=== PATIENT | female | born 1990 ===

== ENCOUNTER 2017-03-28 10:37 | Emergency (ER) | payer OTHER ==
[2017-03-28 10:37] VITALS: BMI 38.7
--- NOTE | 2017-03-28 11:16 | ED PDOC ---
Arrival/HPI - General Historian: Patient - History of Present Illness Time/Duration: Prior to Arrival Symptom Onset: Sudden Symptom Course: Unchanged Quality: Aching Severity Level: 4 Activities at Onset: Light Context: Walking, Street <Chey Mcfadden - Last Filed: 03/28/17 12:31> <Jb Jackson - Last Filed: 03/28/17 15:04> - General Chief Complaint: Seizure Time Seen by Provider: 03/28/17 10:57 - History of Present Illness Narrative History of Present Illness (Text): 03/28/17 11:13 This is a 26Y F with PMH of seizures who came to ED for seizure. She was walking her children to school and next thing she knew she was in the ambulance. She reports LOC and that she did hit her head and has a headache right now. She denies tongue biting or incontinence. Her last seizure was a couple months ago and she was admitted at [facility] in January. She takes Keppra for her seizures and sees Dr. Nagy as outpatient. She denies CP, SOB, n/v/d, numbness/tingling, fever or chills. She just feels weak and has a headache. Her last seizure was noted to be about 1 month ago and she saw Dr. Nagy after that. He increased her Keppra from BID to TID. Patient reports her seizure are not increasing in frequency. (Chey Mcfadden) Past Medical History - Provider Review Nursing Documentation Reviewed: Yes - Infectious Disease Hx of Infectious Diseases: None - Tetanus Immunization Tetanus Immunization: Unknown - Cardiac Hx Cardiac Disorders: No - Pulmonary Hx Respiratory Disorders: No - Neurological Hx Neurological Disorder: Yes Hx Seizures: Yes - HEENT Hx HEENT Disorder: No - Renal Hx Renal Disorder: No - Endocrine/Metabolic Hx Endocrine Disorders: No - Hematological/Oncological Hx Blood Transfusions: No Hx Blood Transfusion Reaction: No - Integumentary Hx Dermatological Disorder: No - Musculoskeletal/Rheumatological Hx Falls: Yes - Gastrointestinal Hx Gastrointestinal Disorders: No - Genitourinary/Gynecological Hx Genitourinary Disorders: No - Psychiatric Hx Psychophysiologic Disorder: No Hx Substance Use: No - Past Surgical History Past Surgical History: No Previous - Surgical History Other/Comment: . - Anesthesia Hx Anesthesia Reactions: No Hx Malignant Hyperthermia: No - Suicidal Assessment Feels Threatened In Home Enviroment: No <Chey Mcfadden - Last Filed: 03/28/17 12:31> Family/Social History - Physician Review Nursing Documentation Reviewed: Yes Family/Social History: No Known Family HX Smoking Status: Smoker Currrent Status Unknown Hx Alcohol Use: Yes (ocasionally) Hx Substance Use: No <Chey Mcfadden - Last Filed: 03/28/17 12:31> Allergies/Home Meds <Chey Mcfadden - Last Filed: 03/28/17 12:31> <Jb Jackson - Last Filed: 03/28/17 15:04> Allergies/Adverse Reactions: Allergies No Known Allergies Allergy (Verified 03/28/17 10:51) Review of Systems - Physician Review All systems were reviewed & negative as marked: Yes - Review of Systems Constitutional: Normal. absent: Fevers Eyes: Normal. absent: Vision Changes ENT: Normal. absent: Hearing Changes Respiratory: Normal. absent: SOB, Cough, Wheezing Cardiovascular: Normal. absent: Chest Pain, Palpitations, Edema Gastrointestinal: Normal. absent: Abdominal Pain, Diarrhea, Nausea, Vomiting Genitourinary Female: Normal. absent: Dysuria, Frequency, Hematuria Musculoskeletal: Normal. absent: Arthralgias, Back Pain Skin: Normal. absent: Rash, Pruritis Neurological: Headache. absent: Dizziness Psychiatric: Normal <Chey Mcfadden - Last Filed: 03/28/17 12:31> Physical Exam Vital Signs Reviewed: Yes Temperature: Afebrile Blood Pressure: Normal Pulse: Regular Respiratory Rate: Normal Appearance: Positive for: Well-Appearing, Non-Toxic, Comfortable Pain Distress: None Mental Status: Positive for: Alert and Oriented X 3 Finger Stick Blood Glucose: 108 - Systems Exam Head: Present: Atraumatic, Normocephalic, Tenderness (to top of head ). No: Contusion, Ecchymosis Pupils: Present: PERRL Extroacular Muscles: Present: EOMI Conjunctiva: Present: Normal Mouth: Present: Moist Mucous Membranes Neck: Present: Normal Range of Motion Respiratory/Chest: Present: Clear to Auscultation, Good Air Exchange. No: Respiratory Distress, Accessory Muscle Use Cardiovascular: Present: Regular Rate and Rhythm, Normal S1, S2. No: Murmurs Abdomen: Present: Normal Bowel Sounds. No: Tenderness, Distention, Peritoneal Signs Back: Present: Normal Inspection Upper Extremity: Present: Normal Inspection. No: Cyanosis, Edema Lower Extremity: Present: Normal Inspection. No: Edema Neurological: Present: GCS=15, CN II-XII Intact, Speech Normal, Motor Func Grossly Intact Skin: Present: Warm, Dry, Normal Color. No: Rashes Psychiatric: Present: Alert, Oriented x 3, Normal Insight, Normal Concentration <Chey Mcfadden - Last Filed: 03/28/17 12:31> Medical Decision Making Re-evaluation Time: 12:12 Reassessment Condition: Improved - Lab Interpretations I have reviewed the lab results: Yes Interpretation: All labs normal - RAD Interpretation Belt Buckle Maker: Radiologist - EKG Interpretation Interpreted by ED Physician: Yes Type: 12 lead EKG <Chey Mcfadden - Last Filed: 03/28/17 12:31> <Jb Jackson - Last Filed: 03/28/17 15:04> ED Course and Treatment: 03/28/17 11:17 Impression: This is a 26Y F with PMH of seizures here for seizure while walking kids to school. She did have LOC and hit her head. DDX: Seizure v. Syncope v. Arrhythmia Plan: -- CBC, CMP, Cardiac ISO -- EKG -- Head CT -- Reassess Prior Visits: Notes and results from previous visits were reviewed. 03/28/17 12:09 Progress Note: Patient reports having a headache. Would like something for pain. Toradol given. Labs within normal limits. Patient reports she has follow up appointment with Dr. Nagy on April 06. Spoke with Dr. Nagy who requested that the patient be d/c with Lamictal 25mg BID along with her Keppra 500mg TID and to follow up with him next week. (Chey Mcfadden) Patient seen and examined with resident. Came up with treatment and disposition plan with resident. A 26 year old female presents after seizure episode. Patient with known seizure disorder. States she has been feeling more stressed lately. Reportedly patient was feeling well this morning and subsequently brought in by EMS for possible seizure. On exam, patient is alert and oriented, no noted trauma, normal neuro exam. Head CT unremarkable. Patient has been observed for several hours in the emergency room. History suggests seizure since no chest pain, shortness of breath or cardiovascular instability. Case discussed with Dr. Nagy, who advised adding additional seizure medication. No neurological deficits as of 14: 45 when patient was discharged. Patient instructed to follow up with neurologist. Patient has been reenforced not to drive a motor vehicle. (Jb Jackson) - Lab Interpretations Lab Results: 03/28/17 10:54 03/28/17 10:54 Lab Results 03/28/17 12:00: Urine Color Yellow, Urine Appearance Clear, Urine pH 7.0, Ur Specific [place] 1.025, Urine Protein 100 H, Urine Glucose (UA) Negative, Urine Ketones Negative, Urine Blood Negative, Urine Nitrate Negative, Urine Bilirubin Negative, Urine Urobilinogen 0.2, Ur Leukocyte Esterase Trace H, Urine RBC 0 - 2 , Urine WBC 2 - 5, Ur Epithelial Cells 4 - 5, Urine Bacteria Small, Urine HCG, Qual Negative 03/28/17 10:54: Sodium 139, Potassium 4.1, Chloride 104, Carbon Dioxide 20 L, Anion Gap 19, BUN 11, Creatinine 0.7, Est GFR ( Amer) > 60, Est GFR (Non- Af Amer) > 60, Random Glucose 88, Calcium 9.4, Total Bilirubin 0.4, AST 22, ALT 26, Alkaline Phosphatase 66, Lactate Dehydrogenase 456, Total Creatine Kinase 50 , Troponin I < 0.01, Total Protein 7.8, Albumin 4.5, Globulin 3.2, Albumin/ Globulin Ratio 1.4 03/28/17 10:54: WBC 7.5, RBC 4.41, Hgb 13.0, Hct 38.3, MCV 86.8, MCH 29.5, MCHC 33.9, RDW 13.1, Plt Count 259, MPV 11.1 H - RAD Interpretation Narrative RAD Interpretations (Text): 03/28/17 12:31 CT head showed no acute intracranial abnormalities. Normal head CT. Please see full report for details. (Chey Mcfadden) Radiology Orders: 03/28/17 11:09 HEAD W/O CONTRAST [CT] Stat - EKG Interpretation EKG Interpretation (Text): 03/28/17 11:38 Hr 108. Normal intervals. 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 MD/ has examined the patient and agrees with the treatment plan. - Scribe Statement The provider has reviewed the documentation as recorded by the Scribe <Jb Jackson - Last Filed: 03/28/17 15:04> - Scribe Statement Madelyn Fountain Provider Scribe Attestation: All medical record entries made by the Scribe were at my direction and personally dictated by me. I have reviewed the chart and agree that the record accurately reflects my personal performance of the history, physical exam, medical decision making, and the department course for this patient. I have also personally directed, reviewed, and agree with the discharge instructions and disposition. (Jb Jackson) Disposition/Present on Arrival - Present on Arrival Any Indicators Present on Arrival: No History of DVT/PE: No History of Uncontrolled Diabetes: No Urinary Catheter: No History of Decub. Ulcer: No History Surgical Site Infection Following: None - Disposition Have Diagnosis and Disposition been Completed?: Yes Disposition Time: 12:32 Patient Plan: Discharge <Chey Mcfadden - Last Filed: 03/28/17 12:31> <Jb Jackson - Last Filed: 03/28/17 15:04> - Disposition Diagnosis: Seizure Disposition: HOME/ ROUTINE Patient Problems: Current Active Problems Problem Status Onset Seizure Acute Condition: FAIR Discharge Instructions (ExitCare): Recurrent Seizures in Adults (ED) Print Language: UKRAINIAN Additional Instructions: Usama, thank you for letting us take care of you today. Your provider was Dr. Mcfadden. You were treated for seizure. The emergency medical care you received today was directed at your acute symptoms. If you were prescribed any medication, please fill it and take as directed. It may take several days for your symptoms to resolve. Return to the Emergency Department if your symptoms worsen, do not improve, or if you have any other problems. Please contact your doctor or call one of the physicians/clinics you have been referred to that are listed on the Patient Visit Information form that is included in your discharge packet. Bring any paperwork you were given at discharge with you along with any medications you are taking to your follow up visit. Our treatment cannot replace ongoing medical care by a primary care provider (PCP) outside of the emergency department. Thank you for allowing the [facility] team to be part of your care today. If you had an X-Ray or CT scan: A Radiologist will review the ED reading if any change in treatment is needed we will contact you. Please follow up with Dr. Nagy within 1 week. Prescriptions: lamoTRIgine [LaMICtal] 25 mg PO BID #60 tab Referrals: PCP,NO [Primary Care Provider] - Follow up with primary Valente Nagy MD [Staff Provider] - Follow up with primary
[2017-03-28 11:51] LABS: HEMATOCRIT 38.3 % (36.0-48.0); MEAN CELL VOLUME 86.8 fL (80.0-105.0); MEAN CORPUSCULAR HEMOGLOBIN 29.5 pg (25.0-35.0); MEAN CORPUSCULAR HGB CONC 33.9 g/dl (31.0-37.0); MEAN PLATELET VOLUME 11.1 fl (7.0-11.0); RED CELL DISTRIBUTION WIDTH 13.1 % (11.5-14.5); WHITE BLOOD COUNT 7.5 10^3/ul (4.5-11.0)
[2017-03-28 11:55] LABS: ALB/GLOB RATIO 1.4 (1.1-1.8); ALKALINE PHOSPHATASE 66 U/L (38-133); ALT/SGPT 26 U/L (7-56); AST/SGOT 22 U/L (15-39); BILIRUBIN,TOTAL 0.4 mg/dL (0.2-1.3); BLOOD UREA NITROGEN 11 mg/dL (7-21); CALCIUM 9.4 mg/dL (8.4-10.5); CARBON DIOXIDE 20 mmol/L (21-33); CHLORIDE 104 mmol/L (95-110); GFR AFRICAN-AMERICAN > 60; GLUCOSE,RANDOM 88 mg/dL (70-110); POTASSIUM 4.1 mmol/L (3.6-5.0); SODIUM 139 mmol/L (132-148); TOTAL PROTEIN 7.8 g/dL (5.8-8.3)
--- NOTE | 2017-03-28 11:56 | CT ---
PROCEDURE: CT HEAD WITHOUT CONTRAST. HISTORY: fell, hit head COMPARISON: 02/01/2017 TECHNIQUE: Axial computed tomography images were obtained through the head/brain without intravenous contrast. Radiation dose: Total exam DLP = 677.45 mGy-cm. This CT exam was performed using one or more of the following dose reduction techniques: Automated exposure control, adjustment of the mA and/or kV according to patient size, and/or use of iterative reconstruction technique. FINDINGS: HEMORRHAGE: No intracranial hemorrhage. BRAIN: No mass effect or edema. No atrophy or chronic microvascular ischemic changes. VENTRICLES: Unremarkable. No hydrocephalus. CALVARIUM: Unremarkable. PARANASAL SINUSES: Unremarkable as visualized. No significant inflammatory changes. MASTOID AIR CELLS: Unremarkable as visualized. No inflammatory changes. OTHER FINDINGS: None. IMPRESSION: Normal CT of the Head. No acute intracranial hemorrhage.
[2017-03-28 12:10] VITALS: RESP 18; O2SAT 99
[2017-03-28 12:24] LABS: TROPONIN I < 0.01 ng/mL
--- NOTE | 2017-03-28 12:27 | CARD ---
APPROVED REPORT EKG Measurement Heart [id number] <Conclusion> Sinus tachycardia Otherwise normal ECG
[2017-03-28 12:58] LABS: URINE BILIRUBIN NEGATIVE (NEGATIVE); URINE BLOOD NEGATIVE (NEGATIVE); URINE GLUCOSE (UA) NEGATIVE (NEGATIVE); URINE KETONE NEGATIVE (NEGATIVE); URINE LEUKOCYTE ESTERASE TRACE Leu/uL (NEGATIVE); URINE PROTEIN 100 mg/dL (<30 mg/dL); URINE UROBILINOGEN 0.2 E.U./dL (<1 E.U./dL)
[2017-03-28 13:00] LABS: URINE APPEARANCE CLEAR (CLEAR); URINE COLOR YELLOW (YELLOW)
[2017-03-28 13:10] LABS: URINE BACTERIA SMALL (NEG); URINE RBC 0 - 2 /hpf (0-2)
[2017-03-28 14:20] VITALS: BP 121/71; PULSE 67
== END 2017-03-28 14:30 | disposition home or self-care (01) ==
LOC: ED 10:37
DX: R56.9 Unspecified convulsions (principal)
CPT/HCPCS: 70450; 80053; 81001; 82550; 83615; 84484; 84703; 85027; 87086; 93005; 96374; 99285; J1885

== ENCOUNTER 2017-04-27 11:29 | Emergency (ER) | payer OTHER ==
[2017-04-27 11:29] VITALS: BMI 38.7
[2017-04-27 11:33] VITALS: RESP 16; TEMP 98.6
[2017-04-27] MEDS ORDERED: Sodium Chloride 0.9% 1,000 ML IV STA ×2 (12:07→13:50)
--- NOTE | 2017-04-27 12:07 | ED PDOC ---
Arrival/HPI - General Historian: Patient - History of Present Illness Time/Duration: Prior to Arrival Symptom Onset: Sudden Symptom Course: Worsening Quality: Aching (headache. ) Context: Work <Bev Ayoub - Last Filed: 04/27/17 16:11> <Gonzalez Mauricio - Last Filed: 04/27/17 17:50> - General Chief Complaint: Seizure Time Seen by Provider: 04/27/17 11:32 - History of Present Illness Narrative History of Present Illness (Text): 04/27/17 12:03 Patient is a 26 y/o with PMH of seizure disorders presenting with recurrent witnessed seizures earlier today. Patient states she was working at [employer] when she developed the seizures. Patient is not sure if she fell or not, but states there were people around her. Patient doesn't get warnings with her seizures, and states after the seizure she felt tired, dizzy and has headache. Pt bite the left side of her cheek. No bowel or bladder incontinent this time. Patient states she has seizures for all her life, and sees Dr Nagy. Patient was in the ED last month for similar complaints, and her keppra was increased to TID and lamictal was added to her med list. Patient states she saw Dr Sutherland last month and was told to discontinue the lamictal. Patient states she had another seizure April 17, gets seizures every time she's upset, and now she gest it almost every 3 weeks. Patient is currently c/o headache, dizziness, fatigue. patient also has burning with urination, and had 1 episode of watery diarrhea this AM prior to seizure. Patient denies fever, admits to chills, denies n/v, denies cp or sob. (Bev Ayoub) Past Medical History - Provider Review Nursing Documentation Reviewed: Yes - Travel History Have you recently traveled outside [place] w/in the past 3 mons?: No - Infectious Disease Hx of Infectious Diseases: None - Tetanus Immunization Tetanus Immunization: Unknown - Cardiac Hx Cardiac Disorders: No - Pulmonary Hx Respiratory Disorders: No - Neurological Hx Neurological Disorder: Yes Hx Seizures: Yes - HEENT Hx HEENT Disorder: No - Renal Hx Renal Disorder: No - Endocrine/Metabolic Hx Endocrine Disorders: No - Hematological/Oncological Hx Blood Transfusions: No Hx Blood Transfusion Reaction: No - Integumentary Hx Dermatological Disorder: No - Musculoskeletal/Rheumatological Hx Musculoskeletal Disorders: Yes Hx Falls: Yes - Gastrointestinal Hx Gastrointestinal Disorders: No - Genitourinary/Gynecological Hx Genitourinary Disorders: No - Psychiatric Hx Psychophysiologic Disorder: No Hx Substance Use: No - Past Surgical History Past Surgical History: No Previous - Surgical History Hx Section: Yes Other/Comment: . - Anesthesia Hx Anesthesia Reactions: No Hx Malignant Hyperthermia: No - Suicidal Assessment Feels Threatened In Home Enviroment: No <Bev Ayoub - Last Filed: 04/27/17 16:11> Family/Social History - Physician Review Nursing Documentation Reviewed: Yes Family/Social History: No Known Family HX Smoking Status: Never Smoked Hx Alcohol Use: No Hx Substance Use: No <Bev Ayoub - Last Filed: 04/27/17 16:11> Allergies/Home Meds <Bev Ayoub - Last Filed: 04/27/17 16:11> <Gonzalez Mauricio - Last Filed: 04/27/17 17:50> Allergies/Adverse Reactions: Allergies No Known Allergies Allergy (Verified 04/27/17 11:33) Review of Systems - Review of Systems Constitutional: Fatigue. absent: Fevers Eyes: Normal ENT: Normal Respiratory: Normal Cardiovascular: Normal Gastrointestinal: Diarrhea. absent: Abdominal Pain, Constipation, Nausea, Vomiting, Appetite Changes Genitourinary Female: Dysuria. absent: Frequency, Hematuria, Vaginal Bleeding, Vaginal Discharge Musculoskeletal: Neck Pain Skin: Normal Neurological: Headache, Dizziness, Seizure. absent: Focal Weakness, Speech Changes, Facial Droop Endocrine: Normal Hemo/Lymphatic: Normal Psychiatric: Normal <Bev Ayoub - Last Filed: 04/27/17 16:11> Physical Exam Temperature: Afebrile Blood Pressure: Normal Pulse: Tachycardic Respiratory Rate: Normal Appearance: Positive for: Well-Appearing, Non-Toxic, Comfortable Pain Distress: None Mental Status: Positive for: Alert and Oriented X 3 Finger Stick Blood Glucose: 100 - Systems Exam Head: Present: Atraumatic, Normocephalic Pupils: Present: PERRL Extroacular Muscles: Present: EOMI Conjunctiva: Present: Normal. No: Icteric Mouth: Present: Moist Mucous Membranes Neck: Present: Normal Range of Motion, Other (neck tenderness. ). No: Meningeal Signs, JVD, Lymphadenopathy Respiratory/Chest: Present: Clear to Auscultation, Good Air Exchange. No: Respiratory Distress, Accessory Muscle Use, Wheezes, Rales, Retracting, Rhonchi , Tachypneic Cardiovascular: Present: Regular Rate and Rhythm, Normal S1, S2. No: Murmurs, Irregular Rhythm, Tachycardic, Bradycardic, Rub, Gallop, Muffled Abdomen: Present: Normal Bowel Sounds, Scars. No: Tenderness, Distention, Guarding Upper Extremity: Present: Normal Inspection. No: Cyanosis, Edema Lower Extremity: Present: Normal Inspection. No: Edema Neurological: Present: GCS=15, CN II-XII Intact, Speech Normal, Motor Func Grossly Intact, Norm Deep Tendon Reflexes, Memory Normal Skin: Present: Warm, Dry, Normal Color. No: Rashes Psychiatric: Present: Alert, Oriented x 3, Normal Insight, Normal Concentration <Bev Ayoub - Last Filed: 04/27/17 16:11> Medical Decision Making Re-evaluation Time: 14:00 Reassessment Condition: Re-examined - Lab Interpretations I have reviewed the lab results: Yes <Bev Ayoub - Last Filed: 04/27/17 16:11> - Lab Interpretations I have reviewed the lab results: Yes <Gonzalez Mauricio - Last Filed: 04/27/17 17:50> ED Course and Treatment: 04/27/17 12:21 Patient is a 26 y/o with PMH of seizure disorders presenting with recurrent seizures. Differentials: recurrent seizures likely secondary to infection, hypoglycemia, trauma, electrolytes imbalance. Plan: CBC, CMP, UA, urine , ekg, CT head Tylenol for headache. 04/27/17 14:03 CT head with no intracranial hemorrhage. Patient still c/o headache, gave toradol 30 mg ivp. 04/27/17 14:[address] Yakov Rankin, stated patient can be discharged, to add lamictal 25 mg BID. 04/27/17 15:21 Patient states the headache has improved. (Bev Ayoub) Patient seen and examined with resident. Came up with treatment and disposition plan with resident. The patient is a 26 year old female who comes into the emergency department for evaluation after a seizure. Patient has a history of seizure and see Dr. Nagy (neurologist). Patient says she believes her seizure was similar to previous episodes, where she falls and shakes. Additional HPI details as noted by the resident. On physical examination the patient has some tenderness to the back of head and a bite to the inside of the left cheek but there is no active bleeding. No midline tenderness to neck. Neck FrOM. EKG, head CT, lab work and urinalysis ordered to rule out infection vs. hypoglycemia vs. trauma vs. electrolyte imbalance. Patient given Keppra, Tylenol and IV Fluids for symptomatic control. EKG shows normal sinus rhythm at 90 BPM with normal interval, normal axis, no ST /T changes. Interpreted by me. Patient head CT showed no intracranial hemorrhage. Case was discussed with Dr. Sacha Nagy, who stated to discharge patient home. On re-evaluation, the patient feels better and is in no acute distress. Results and plan were discussed with the patient, who expresses understanding. Patient in agreement with plan to discharged home. Patient is stable for discharge. Patient was instructed to follow up with Dr. Nagy or return if symptoms worsen or new concerning symptoms arise. (Gonzalez Mauricio) - Lab Interpretations Lab Results: 04/27/17 12:30 04/27/17 13:15 Lab Results 04/27/17 13:15: Sodium 136, Potassium 4.5, Chloride 104, Carbon Dioxide 24, Anion Gap 13, BUN 7, Creatinine 0.6, Est GFR ( Amer) > 60, Est GFR (Non- Af Amer) > 60, Random Glucose 88, Calcium 8.9, Magnesium 1.9, Total Bilirubin 0.6, AST 20, ALT 27, Alkaline Phosphatase 68, Total Protein 6.8, Albumin 3.9, Globulin 3.0, Albumin/Globulin Ratio 1.3, Lipase 38 04/27/17 12:38: Urine Opiates Screen Negative, Urine Methadone Screen Negative, Ur Barbiturates Screen Negative, Ur Phencyclidine Scrn Negative, Ur Amphetamines Screen Negative, U Benzodiazepines Scrn Negative, U Oth Cocaine Metabols Negative, U Cannabinoids Screen Negative 04/27/17 12:38: Urine Color Yellow, Urine Appearance Clear, Urine pH 6.0, Ur Specific [place] 1.010, Urine Protein 30 H, Urine Glucose (UA) Negative, Urine Ketones Negative, Urine Blood Negative, Urine Nitrate Negative, Urine Bilirubin Negative, Urine Urobilinogen 0.2, Ur Leukocyte Esterase Small H, Urine RBC Negative, Urine WBC 10 - 15, Ur Epithelial Cells 0 - 2, Urine Bacteria Few 04/27/17 12:30: WBC 8.3, RBC 4.42, Hgb 13.3, Hct 39.9, MCV 90.3, MCH 30.1, MCHC 33.3, RDW 13.2, Plt Count 213, MPV 11.3 H, Gran % 70.9 H, Lymph % (Auto) 21.4 L , Miller % (Auto) 5.9, Eos % (Auto) 1.7, Baso % (Auto) 0.1, Gran # 5.91, Lymph # 1.8, Miller # 0.5, Eos # 0.1, Baso # 0.01 - RAD Interpretation Radiology Orders: 04/27/17 12:12 HEAD W/O CONTRAST [CT] Stat - Medication Orders Current Medication Orders: Discontinued Medications Acetaminophen (Tylenol 325mg Tab) 650 mg PO STAT STA Stop: 04/27/17 12:08 Last Admin: 04/27/17 12:49 Dose: Not Given Non-Admin Reason: Patient Refused Sodium Chloride (Sodium Chloride 0.9%) 1,000 mls @ 999 mls/hr IV .Q1H1M STA Stop: 04/27/17 13:07 Last Admin: 04/27/17 12:49 Dose: 999 mls/hr Ketorolac Tromethamine (Toradol) 30 mg IVP STAT STA Stop: 04/27/17 13:58 Last Admin: 04/27/17 14:25 Dose: 30 mg Lamotrigine (Lamictal) 25 mg PO ONCE ONE PRN Reason: Protocol Stop: 04/28/17 14:07 Levetiracetam (Keppra) 500 mg PO ONCE ONE Stop: 04/27/17 12:58 Last Admin: 04/27/17 13:27 Dose: 500 mg Trimethoprim/Sulfamethoxazole (Bactrim Ds Tab) 1 tab PO STAT STA PRN Reason: Protocol Stop: 04/27/17 14:05 Last Admin: 04/27/17 14:22 Dose: 1 tab <Bev Ayoub - Last Filed: 04/27/17 16:11> - PA / SENIOR MANUFACTURING TECHNICIAN / Resident Statement MD/DO has reviewed & agrees with the documentation as recorded. MD/DO has examined the patient and agrees with the treatment plan. - Scribe Statement The provider has reviewed the documentation as recorded by the Scribe <Gonzalez Mauricio - Last Filed: 04/27/17 17:50> - Scribe Statement Thelma Potter Provider Scribe Attestation: All medical record entries made by the Scribe were at my direction and personally dictated by me. I have reviewed the chart and agree that the record accurately reflects my personal performance of the history, physical exam, medical decision making, and the department course for this patient. I have also personally directed, reviewed, and agree with the discharge instructions and disposition. (Gonzalez Mauricio) Disposition/Present on Arrival - Present on Arrival Any Indicators Present on Arrival: No History of DVT/PE: No History of Uncontrolled Diabetes: No Urinary Catheter: No History of Decub. Ulcer: No History Surgical Site Infection Following: None - Disposition Have Diagnosis and Disposition been Completed?: Yes Disposition Time: 16:00 Patient Plan: Discharge <Bev Ayoub - Last Filed: 04/27/17 16:11> <Gonzalez Mauricio - Last Filed: 04/27/17 17:50> - Disposition Diagnosis: Seizure disorder, Breakthrough seizure, UTI (urinary tract infection) Disposition: HOME/ ROUTINE Condition: IMPROVED Additional Instructions: Ms Forrester, thank you for letting us take care of you today. Your provider was Dr. Mauricio. You were treated for Seizure. The emergency medical care you received today was directed at your acute symptoms. If you were prescribed any medication, please fill it and take as directed. It may take several days for your symptoms to resolve. Return to the Emergency Department if your symptoms worsen, do not improve, or if you have any other problems. Please contact your doctor or call one of the physicians/clinics you have been referred to that are listed on the Patient Visit Information form that is included in your discharge packet. Bring any paperwork you were given at discharge with you along with any medications you are taking to your follow up visit. Our treatment cannot replace ongoing medical care by a primary care provider (PCP) outside of the emergency department. Make sure to follow up with your Neurologist Dr. Nagy as scheduled. Thank you for allowing the [facility] team to be part of your care today. If you had an X-Ray or CT scan: A Radiologist will review the ED reading if any change in treatment is needed we will contact you. If you had a blood, urine, or wound culture: It will take several days for the results, if any change in treatment is needed we will contact you. If you had an STI test: It will take 48 hours for the results. Please call after 1 week if you have not heard back. Prescriptions: lamoTRIgine [LaMICtal] 25 mg PO BID #60 tab Levetiracetam [Keppra] 500 mg PO TID #90 tablet Sulfamethoxazole/Trimethoprim [Bactrim 400-80 mg Tablet] 1 each PO BID #6 tablet Referrals: Elvin Zuñiga, [Primary Care Provider] - Follow up with primary Valente Nagy MD [Staff Provider] - Follow up with primary Forms: [employer] ([place]), WORK NOTE
[2017-04-27 12:38] LABS: ADD MANUAL DIFF? NO
[2017-04-27 12:42] LABS: BASO # 0.01 K/mm3 (0.0-2.0); BASO % 0.1 % (0.0-3.0); EOS # 0.1 (0.0-0.7); EOS % 1.7 % (1.5-5.0); GRAN # 5.91 (1.4-6.5); GRAN % 70.9 % (50.0-68.0); HEMATOCRIT 39.9 % (36.0-48.0); LYMPH # 1.8 (1.2-3.4); LYMPH % 21.4 % (22.0-35.0); MEAN CELL VOLUME 90.3 fL (80.0-105.0); MEAN CORPUSCULAR HEMOGLOBIN 30.1 pg (25.0-35.0); MEAN CORPUSCULAR HGB CONC 33.3 g/dl (31.0-37.0); MEAN PLATELET VOLUME 11.3 fl (7.0-11.0); MONO # 0.5 (0.1-0.6); MONO % 5.9 % (1.0-6.0); PLATELET COUNT 213 10^3/uL (120.0-450.0); RED CELL DISTRIBUTION WIDTH 13.2 % (11.5-14.5); WHITE BLOOD COUNT 8.3 10^3/ul (4.5-11.0)
[2017-04-27 12:49] LABS: URINE BILIRUBIN NEGATIVE (NEGATIVE); URINE BLOOD NEGATIVE (NEGATIVE); URINE GLUCOSE (UA) NEGATIVE (NEGATIVE); URINE KETONE NEGATIVE (NEGATIVE); URINE LEUKOCYTE ESTERASE SMALL Leu/uL (NEGATIVE); URINE PROTEIN 30 mg/dL (<30 mg/dL); URINE UROBILINOGEN 0.2 E.U./dL (<1 E.U./dL)
[2017-04-27 12:51] LABS: URINE APPEARANCE CLEAR (CLEAR); URINE COLOR YELLOW (YELLOW)
[2017-04-27] MEDS ORDERED: levETIRAcetam 500 mg/5ml UD cups PO ONE (12:57)
[2017-04-27 13:03] LABS: URINE BACTERIA FEW (NEG); URINE EPITHELIAL CELLS 0 - 2 /hpf (0-5); URINE RBC NEGATIVE /hpf (0-2)
[2017-04-27 13:55] LABS: ALB/GLOB RATIO 1.3 (1.1-1.8); ALKALINE PHOSPHATASE 68 U/L (38-133); ALT/SGPT 27 U/L (7-56); AST/SGOT 20 U/L (15-39); BILIRUBIN,TOTAL 0.6 mg/dL (0.2-1.3); BLOOD UREA NITROGEN 7 mg/dL (7-21); CALCIUM 8.9 mg/dL (8.4-10.5); CARBON DIOXIDE 24 mmol/L (21-33); CHLORIDE 104 mmol/L (98-107); GFR AFRICAN-AMERICAN > 60; GLUCOSE,RANDOM 88 mg/dL (70-110); LIPASE 38 U/L (23-300); MAGNESIUM 1.9 mg/dL (1.7-2.2); POTASSIUM 4.5 mmol/L (3.6-5.0); SODIUM 136 mmol/L (132-148); TOTAL PROTEIN 6.8 g/dL (5.8-8.3)
--- NOTE | 2017-04-27 13:57 | CT ---
PROCEDURE: CT HEAD WITHOUT CONTRAST. HISTORY: seizure/fall COMPARISON: 03/28/2017. TECHNIQUE: Axial computed tomography images were obtained through the head/brain without intravenous contrast. Radiation dose: Total exam DLP = 689.97 mGy-cm. This CT exam was performed using one or more of the following dose reduction techniques: Automated exposure control, adjustment of the mA and/or kV according to patient size, and/or use of iterative reconstruction technique. FINDINGS: HEMORRHAGE: No intracranial hemorrhage. BRAIN: Nunez-white matter differentiation is preserved. There is no mass, mass effect or abnormal extra-axial fluid collection. VENTRICLES: The ventricles are normal in size, shape and configuration. CALVARIUM: The skull base and calvarium are normal. PARANASAL SINUSES: Predominantly clear. MASTOID AIR CELLS: Predominantly clear. OTHER FINDINGS: None. IMPRESSION: No acute intracranial abnormality.
[2017-04-27] MEDS ORDERED: Tmp-Smz 800 mg-160 mg DS Tab PO STA (14:04)
[2017-04-27 16:11] VITALS: BP 122/81; PULSE 75; O2SAT 97
--- NOTE | 2017-04-27 23:39 | CARD ---
APPROVED REPORT EKG Measurement Heart [id number] <Conclusion> Normal sinus rhythm Normal ECG
== END 2017-04-27 16:50 | disposition home or self-care (01) ==
LOC: ED 11:29
DX: G40.909 Epilepsy, unspecified, not intractable, without status epilepticus (principal); N39.0 Urinary tract infection, site not specified
CPT/HCPCS: 70450; 80053; 80324; 80345; 80346; 80349; 80353; 80358; 80361; 81001; 83690; 83735; 83992; 85025; 87086; 93005; 96361; 96374; 99284; J1885; J7040

== ENCOUNTER 2017-05-03 09:00 | Emergency (ER) | payer OTHER ==
[2017-05-03 09:00] VITALS: BMI 38.7
[2017-05-03 09:11] VITALS: TEMP 97.7; O2SAT 100
--- NOTE | 2017-05-03 09:42 | ED PDOC ---
Arrival/HPI <Leroy Pratt - Last Filed: 05/03/17 11:14> - General Historian: Patient - History of Present Illness Time/Duration: Prior to Arrival Symptom Onset: Sudden Symptom Course: Unchanged Quality: Aching Context: Other (daycare) <Bev Ayoub - Last Filed: 05/03/17 11:24> - General Chief Complaint: Seizure Time Seen by Provider: 05/03/17 09:19 - History of Present Illness Narrative History of Present Illness (Text): 05/03/17 09:37 Patient is a 26 y/o with h/o recurrent seizures, depression and multiple Ed visits presenting with recurrent seizures. Patient states she dropped off her kids at the daycare today and she doesn't remember what happenened after. Patient thinks she had seizures, is not sure if there were any witnesses. patient states she woke up at the custody of the EMS. Patient states when she woke up she felt tired, has headache, and left sided facial pain. Patient denies bowel or bladder incontinent. Patient was discharged form the ED last week with recurrent seizures, patient was suppose to be taking keppra 500 tid, and lamictal 25 mg bid and Bactrim. Patient states she hasn't been taking the lamictal, she has only be taking the keppra 500 mg tid, patient doesn't know why she hasn't been taking the lamictal. Last seizure prior to this was last week. Patient has not followed up with Dr Nagy yet, has appointment for next week. (Bev Ayoub) Past Medical History - Provider Review Nursing Documentation Reviewed: Yes - Travel History Have you recently traveled outside [place] w/in the past 3 mons?: No - Infectious Disease Hx of Infectious Diseases: None - Tetanus Immunization Tetanus Immunization: Unknown - Cardiac Hx Cardiac Disorders: No - Pulmonary Hx Respiratory Disorders: No - Neurological Hx Neurological Disorder: Yes Hx Seizures: Yes - HEENT Hx HEENT Disorder: No - Renal Hx Renal Disorder: No - Endocrine/Metabolic Hx Endocrine Disorders: No - Hematological/Oncological Hx Blood Transfusions: No Hx Blood Transfusion Reaction: No - Integumentary Hx Dermatological Disorder: No - Musculoskeletal/Rheumatological Hx Musculoskeletal Disorders: Yes Hx Falls: Yes - Gastrointestinal Hx Gastrointestinal Disorders: No - Genitourinary/Gynecological Hx Genitourinary Disorders: No - Psychiatric Hx Psychophysiologic Disorder: No Hx Substance Use: No - Past Surgical History Past Surgical History: No Previous - Surgical History Hx Section: Yes Other/Comment: . - Anesthesia Hx Anesthesia: Yes Hx Anesthesia Reactions: No Hx Malignant Hyperthermia: No - Suicidal Assessment Feels Threatened In Home Enviroment: No <Bev Ayoub - Last Filed: 05/03/17 11:24> Family/Social History - Physician Review Nursing Documentation Reviewed: Yes Family/Social History: No Known Family HX Smoking Status: Never Smoked Hx Alcohol Use: No Hx Substance Use: No <Bev Ayoub - Last Filed: 05/03/17 11:24> Allergies/Home Meds <Leroy Pratt - Last Filed: 05/03/17 11:14> <Bev Ayoub - Last Filed: 05/03/17 11:24> Allergies/Adverse Reactions: Allergies No Known Allergies Allergy (Verified 04/27/17 11:33) Review of Systems - Review of Systems Constitutional: Fatigue. absent: Fevers, Night Sweats Eyes: Normal ENT: Normal Respiratory: Normal Cardiovascular: Normal Gastrointestinal: Normal Genitourinary Female: Normal Musculoskeletal: Normal Skin: Normal Neurological: Headache, Seizure. absent: Dizziness, Focal Weakness, Speech Changes, Facial Droop Endocrine: Normal Hemo/Lymphatic: Normal Psychiatric: Normal <Bev Ayoub - Last Filed: 05/03/17 11:24> Physical Exam Vital Signs Reviewed: Yes Temperature: Afebrile Blood Pressure: Normal Pulse: Regular Respiratory Rate: Normal Appearance: Positive for: Well-Appearing, Non-Toxic, Comfortable Pain Distress: None Mental Status: Positive for: Alert and Oriented X 3 Finger Stick Blood Glucose: 119 - Systems Exam Head: Present: Atraumatic, Normocephalic Pupils: Present: PERRL Extroacular Muscles: Present: EOMI Conjunctiva: Present: Normal. No: Icteric Mouth: Present: Moist Mucous Membranes Neck: Present: Normal Range of Motion Respiratory/Chest: Present: Clear to Auscultation, Good Air Exchange. No: Respiratory Distress, Accessory Muscle Use, Wheezes, Rales, Retracting, Rhonchi , Tachypneic, Tender to Palpation Cardiovascular: Present: Regular Rate and Rhythm, Normal S1, S2. No: Murmurs, Tachycardic, Bradycardic, Rub Abdomen: Present: Normal Bowel Sounds. No: Tenderness, Distention, Rebound, Guarding Upper Extremity: Present: Normal Inspection. No: Cyanosis, Edema Lower Extremity: Present: Normal Inspection. No: Edema Neurological: Present: GCS=15, CN II-XII Intact, Speech Normal, Motor Func Grossly Intact Skin: Present: Warm, Dry, Rashes, Normal Color, Abrasion (on the left upper and lower portion of the face. ) Psychiatric: Present: Alert, Oriented x 3, Normal Insight, Normal Concentration , Depressed Mood <Bev Ayoub - Last Filed: 05/03/17 11:24> Vital Signs Temp Pulse Resp BP Pulse Ox 05/03/17 11:12 67 18 125/61 100 05/03/17 09:10 97.7 F 99 H 16 127/54 L 100 05/03/17 09:00 98.6 F 103 H 18 127/54 L 99 Medical Decision Making <Leroy Pratt - Last Filed: 05/03/17 11:14> Re-evaluation Time: 10:51 Reassessment Condition: Re-examined <Bev Ayoub - Last Filed: 05/03/17 11:24> ED Course and Treatment: Patient seen and evaluated with resident. Agree with PI, clinical findings, plan and treatment. Patient is a 26 year old female who presents to the emergency department for evaluation following seizure episode. Offered CT imaging to r/o bleeding, but patients refused CT scan and prefers to follow up outpatient with , neurologist. States she understands the risks of refusing imaging including brain hemorrhage. She was advised to continue her seizure medications and follow up with neurologist within few days. (Leroy Pratt) 05/03/17 09:51 Patient is a 26 y/o with h/o recurrent seizures, multiple ED visit with recent being 04/27, medication non compliance presenting with recurrent seizures. Patient was supposed to take lamictal 25 mg bid on top of the keppra however patient has not being taking the lamictal. Recommended patient get CT to r/o brain hemorrhage/trauma, however patient refused CT scan, patient would prefer to get something for headache and follow up with Dr Nagy. Patient is advised to take her lamictal and keep her next week appointment with Dr rivera. Risk and benefit of CT head explained, including risk of brain hemorrhaging leading to brain herniation and . Patient understands the risk and is able to repeat the sentence. Patient is a&ox3 and is able to make her own medical decisions. Plan: tylenol for pain 05/03/17 10:52 Patient still c/o headache, will give motrin and reassess. Bacitracin ointment applied to the facial abrasion. (Bev Ayoub) - Medication Orders Current Medication Orders: Discontinued Medications Acetaminophen (Tylenol 325mg Tab) 650 mg PO STAT STA Stop: 05/03/17 09:36 Last Admin: 05/03/17 10:00 Dose: 650 mg Ibuprofen (Motrin Tab) 400 mg PO STAT STA Stop: 05/03/17 10:53 - PA / REJECT OPENER / Resident Statement / has reviewed & agrees with the documentation as recorded. / has examined the patient and agrees with the treatment plan. <Leroy Pratt - Last Filed: 05/03/17 11:14> <Bev Ayoub - Last Filed: 05/03/17 11:24> - Scribe Statement Jessie Call Provider Scribe Attestation: All medical record entries made by the Scribe were at my direction and personally dictated by me. I have reviewed the chart and agree that the record accurately reflects my personal performance of the history, physical exam, medical decision making, and the department course for this patient. I have also personally directed, reviewed, and agree with the discharge instructions and disposition. (Leroy Pratt) Disposition/Present on Arrival <Leroy Pratt - Last Filed: 05/03/17 11:14> - Present on Arrival Any Indicators Present on Arrival: No History of DVT/PE: No History of Uncontrolled Diabetes: No Urinary Catheter: No History of Decub. Ulcer: No History Surgical Site Infection Following: None - Disposition Have Diagnosis and Disposition been Completed?: Yes Disposition Time: 11:05 Patient Plan: Discharge <Bev Ayoub - Last Filed: 05/03/17 11:24> - Disposition Diagnosis: Seizure disorder Disposition: HOME/ ROUTINE Condition: STABLE Discharge Instructions (ExitCare): Recurrent Seizures in Adults (ED) Additional Instructions: Please take the lamictal as prescribed last week, 25 mg twice a day. Follow up with Dr Rivera as scheduled. Please return if symptoms worsens or recurs. Referrals: [facility], [Primary Care Provider] - Follow up with primary Valente Nagy MD [Staff Provider] - Follow up with primary Forms: WORK NOTE
[2017-05-03 11:12] VITALS: BP 125/61; PULSE 67; RESP 18
== END 2017-05-03 11:50 | disposition home or self-care (01) ==
LOC: ED 09:00
DX: G40.909 Epilepsy, unspecified, not intractable, without status epilepticus (principal)

== ENCOUNTER 2017-05-08 09:43 | Emergency (ER) | payer OTHER ==
[2017-05-08 09:53] VITALS: BMI 35.5
[2017-05-08] MEDS ORDERED: Sodium Chloride 0.9% 1,000 ML IV STA (10:35)
--- NOTE | 2017-05-08 10:42 | ED PDOC ---
Arrival/HPI - General Chief Complaint: Dizziness/Lightheaded Time Seen by Provider: 05/08/17 09:57 Historian: Patient - History of Present Illness Narrative History of Present Illness (Text): 05/08/17 10:39 26 year old female whose past medical history includes recurrent seizures with multiple ER visits for seizures presents to the emergency department complaining of lightheadedness and headache for the past few days. Denies nausea , vomiting, diarrhea, dysuria, or other complaints. PMD: None Neurologist: Dr. Nagy Time/Duration: < week Symptom Onset: Gradual Symptom Course: Unchanged Associated Symptoms (Text): None Past Medical History - Provider Review Nursing Documentation Reviewed: Yes - Infectious Disease Hx of Infectious Diseases: None - Tetanus Immunization Tetanus Immunization: Unknown - Cardiac Hx Cardiac Disorders: No - Pulmonary Hx Respiratory Disorders: No - Neurological Hx Neurological Disorder: Yes Hx Seizures: Yes - HEENT Hx HEENT Disorder: No - Renal Hx Renal Disorder: No - Endocrine/Metabolic Hx Endocrine Disorders: No - Hematological/Oncological Hx Blood Transfusions: No Hx Blood Transfusion Reaction: No - Integumentary Hx Dermatological Disorder: No - Musculoskeletal/Rheumatological Hx Musculoskeletal Disorders: Yes Hx Falls: Yes - Gastrointestinal Hx Gastrointestinal Disorders: No - Genitourinary/Gynecological Hx Genitourinary Disorders: No - Psychiatric Hx Psychophysiologic Disorder: No Hx Substance Use: No - Past Surgical History Past Surgical History: No Previous - Surgical History Hx Section: Yes (2012) Other/Comment: gallstones removed - Anesthesia Hx Anesthesia: Yes Hx Anesthesia Reactions: No Hx Malignant Hyperthermia: No - Suicidal Assessment Feels Threatened In Home Enviroment: No Family/Social History - Physician Review Nursing Documentation Reviewed: Yes Family/Social History: Unknown Family HX Smoking Status: Never Smoked Hx Alcohol Use: No Hx Substance Use: No Allergies/Home Meds Allergies/Adverse Reactions: Allergies No Known Allergies Allergy (Verified 05/08/17 09:53) Review of Systems - Physician Review All systems were reviewed & negative as marked: Yes - Review of Systems Respiratory: absent: SOB Cardiovascular: absent: Chest Pain Neurological: Headache, Other (Lightheaded) Physical Exam Vital Signs Reviewed: Yes Vital Signs Temp Pulse Resp BP Pulse Ox 05/08/17 13:32 98 F 62 16 112/66 99 05/08/17 11:16 80 16 122/77 98 05/08/17 09:55 98.9 F 87 19 111/75 99 Temperature: Afebrile Blood Pressure: Normal Pulse: Regular Respiratory Rate: Normal Appearance: Positive for: Well-Appearing, Non-Toxic, Comfortable Pain Distress: None Mental Status: Positive for: Alert and Oriented X 3 Finger Stick Blood Glucose: 101 - Systems Exam Head: Present: Atraumatic, Normocephalic Pupils: Present: PERRL Extroacular Muscles: Present: EOMI Conjunctiva: Present: Normal Mouth: Present: Moist Mucous Membranes Neck: Present: Normal Range of Motion Respiratory/Chest: Present: Clear to Auscultation, Good Air Exchange. No: Respiratory Distress, Accessory Muscle Use Cardiovascular: Present: Regular Rate and Rhythm, Normal S1, S2. No: Murmurs Abdomen: Present: Normal Bowel Sounds. No: Tenderness, Distention, Peritoneal Signs Back: Present: Normal Inspection Upper Extremity: Present: Normal Inspection. No: Cyanosis, Edema Lower Extremity: Present: Normal Inspection. No: Edema Neurological: Present: GCS=15, CN II-XII Intact, Speech Normal Skin: Present: Warm, Dry, Normal Color. No: Rashes Psychiatric: Present: Alert, Oriented x 3, Normal Insight, Normal Concentration Medical Decision Making ED Course and Treatment: Impression: 26 year old female whose past medical history includes recurrent seizures with multiple ER visits for seizures presents to the emergency department complaining of lightheadedness and headache for the past few days. Plan: -- Toradol, Meclizine, Reglan -- Labs -- Reassess and disposition Prior Visits: Notes and results from previous visits were reviewed. Patient last seen in ED on 05/03/17 for seizure and discharged home. Progress Notes: - Lab Interpretations Lab Results: 05/08/17 10:14 05/08/17 10:14 Lab Results 05/08/17 10:14: Sodium 141, Potassium 3.9, Chloride 107, Carbon Dioxide 22, Anion Gap 16, BUN 17, Creatinine 0.8, Est GFR ( Amer) > 60, Est GFR (Non- Af Amer) > 60, Random Glucose 96, Calcium 9.3, Total Bilirubin 0.6, AST 24, ALT 22, Alkaline Phosphatase 75, Total Protein 8.1, Albumin 4.6, Globulin 3.5, Albumin/Globulin Ratio 1.3 05/08/17 10:14: WBC 8.0, RBC 4.39, Hgb 13.3, Hct 39.3, MCV 89.5, MCH 30.3, MCHC 33.8, RDW 13.0, Plt Count 274, MPV 11.0, Gran % 66.9, Lymph % (Auto) 27.4, [place] % (Auto) 4.4, Eos % (Auto) 1.2 L, Baso % (Auto) 0.1, Gran # 5.36, Lymph # 2.2, [place] # 0.4, Eos # 0.1, Baso # 0.01 - Medication Orders Current Medication Orders: Discontinued Medications Sodium Chloride (Sodium Chloride 0.9%) 1,000 mls @ 999 mls/hr IV .Q1H1M STA Stop: 05/08/17 11:35 Last Admin: 05/08/17 10:45 Dose: 999 mls/hr Ketorolac Tromethamine (Toradol) 15 mg IVP STAT STA Stop: 05/08/17 10:37 Last Admin: 05/08/17 11:09 Dose: 15 mg Re-Assess: [facility] Pain Assessment Document 05/08/17 12:09 VEY (Rec: 05/08/17 13:06 EVY [id number]) Pain Reassessment Is this a pain reassessment? Yes Sleep Is patient sleeping during reassessment? Yes Meclizine HCl (Antivert) 25 mg PO STAT STA Stop: 05/08/17 10:36 Last Admin: 05/08/17 11:08 Dose: 25 mg Metoclopramide HCl (Reglan) 10 mg IVP STAT STA Stop: 05/08/17 10:36 Last Admin: 05/08/17 11:08 Dose: 10 mg Disposition/Present on Arrival - Present on Arrival Any Indicators Present on Arrival: No History of DVT/PE: No History of Uncontrolled Diabetes: No Urinary Catheter: No History of Decub. Ulcer: No History Surgical Site Infection Following: None - Disposition Have Diagnosis and Disposition been Completed?: Yes Diagnosis: Vertigo Disposition: HOME/ ROUTINE Disposition Time: 11:30 Condition: IMPROVED Discharge Instructions (ExitCare): Vertigo (ED) Additional Instructions: Thank you for letting us take care of you today. Your provider was Dr. Merrill. You were treated for vertigo. The emergency medical care you received today was directed at your acute symptoms. If you were prescribed any medication, please fill it and take as directed. It may take several days for your symptoms to resolve. Return to the Emergency Department if your symptoms worsen, do not improve, or if you have any other problems. Please contact your doctor or call one of the physicians/clinics you have been referred to that are listed on the Patient Visit Information form that is included in your discharge packet. Bring any paperwork you were given at discharge with you along with any medications you are taking to your follow up visit. Our treatment cannot replace ongoing medical care by a primary care provider (PCP) outside of the emergency department. Thank you for allowing the [facility] team to be part of your care today. Follow up in the clinic for outpatient care in the next 2-3 days. Prescriptions: Meclizine [Meclizine*] 25 mg PO Q6 PRN #20 tab PRN Reason: Dizziness Referrals: [facility] [Outside] - Follow up with primary [facility] [Outside] - Follow up with primary PCP,NO [Primary Care Provider] - Follow up with primary
[2017-05-08 11:11] LABS: BASO # 0.01 K/mm3 (0.0-2.0); BASO % 0.1 % (0.0-3.0); EOS # 0.1 (0.0-0.7); EOS % 1.2 % (1.5-5.0); GRAN # 5.36 (1.4-6.5); GRAN % 66.9 % (50.0-68.0); HEMOGLOBIN 13.3 gm/dL (12.0-16.0); LYMPH # 2.2 (1.2-3.4); LYMPH % 27.4 % (22.0-35.0); MEAN CELL VOLUME 89.5 fL (80.0-105.0); MEAN CORPUSCULAR HEMOGLOBIN 30.3 pg (25.0-35.0); MEAN CORPUSCULAR HGB CONC 33.8 g/dl (31.0-37.0); MONO # 0.4 (0.1-0.6); MONO % 4.4 % (1.0-6.0); PLATELET COUNT 274 10^3/uL (120.0-450.0); RBC 4.39 10^6/uL (3.5-6.1)
[2017-05-08 11:14] LABS: ALB/GLOB RATIO 1.3 (1.1-1.8); ALBUMIN 4.6 g/dL (3.0-4.8); ALT/SGPT 22 U/L (7-56); AST/SGOT 24 U/L (15-39); BLOOD UREA NITROGEN 17 mg/dL (7-21); CALCIUM 9.3 mg/dL (8.4-10.5); GFR AFRICAN-AMERICAN > 60; GFR NON-AFRICAN AMERICAN > 60
[2017-05-08 13:08] VITALS: RESP 16
[2017-05-08 13:51] VITALS: BP 112/66; PULSE 62; TEMP 98; O2SAT 99
== END 2017-05-08 13:50 | disposition home or self-care (01) ==
LOC: ED 09:43
DX: R42 Dizziness and giddiness (principal); R56.9 Unspecified convulsions
CPT/HCPCS: 80053; 85025; 96361; 96374; 96375; 99285; J1885; J2765; J7040

== ENCOUNTER 2017-06-19 10:25 | Emergency (ER) | payer OTHER ==
[2017-06-19 10:26] VITALS: BMI 35.5
[2017-06-19 10:39] VITALS: TEMP 98.3
--- NOTE | 2017-06-19 11:12 | ED PDOC ---
Arrival/HPI - General Chief Complaint: Seizure Time Seen by Provider: 06/19/17 10:46 Historian: Patient - History of Present Illness Narrative History of Present Illness (Text): 06/19/17 11:00 Emily Llanes is a 26 year old female, whose past medical history includes seizures, presenting with complaint of increased frequency of seizures. She also reports that her seizures are not generalized tonic clonic anymore but are partial seizures. She reports that she has not followed up with her neurologist , Dr. nagy. She is requesting a refill of her keppra 500mg tid and requesting work note. She denies any somatic complaints. She denies head trauma. Patient denies any chest pain, shortness of breath, headache, nausea, vomiting, diarrhea, fever, chills, cough, head injury or other complaints. Time/Duration: < week (3 days ago) Symptom Onset: Gradual Symptom Course: Unchanged Activities at Onset: Light Modifying Factors (Text): None Associated Symptoms (Text): confusion Past Medical History - Provider Review Nursing Documentation Reviewed: Yes - Infectious Disease Hx of Infectious Diseases: None - Tetanus Immunization Tetanus Immunization: Unknown - Cardiac Hx Cardiac Disorders: No - Pulmonary Hx Respiratory Disorders: No - Neurological Hx Neurological Disorder: Yes Hx Seizures: Yes - HEENT Hx HEENT Disorder: No - Renal Hx Renal Disorder: No - Endocrine/Metabolic Hx Endocrine Disorders: No - Hematological/Oncological Hx Blood Transfusions: No Hx Blood Transfusion Reaction: No - Integumentary Hx Dermatological Disorder: No - Musculoskeletal/Rheumatological Hx Musculoskeletal Disorders: Yes Hx Falls: Yes - Gastrointestinal Hx Gastrointestinal Disorders: No - Genitourinary/Gynecological Hx Genitourinary Disorders: No - Psychiatric Hx Psychophysiologic Disorder: No Hx Substance Use: No - Past Surgical History Past Surgical History: No Previous - Surgical History Hx Section: Yes (2012) Other/Comment: gallstones removed - Anesthesia Hx Anesthesia: Yes Hx Anesthesia Reactions: No Hx Malignant Hyperthermia: No - Suicidal Assessment Feels Threatened In Home Enviroment: No Family/Social History - Physician Review Nursing Documentation Reviewed: Yes Family/Social History: Unknown Family HX Smoking Status: Never Smoked Hx Alcohol Use: No Hx Substance Use: No Allergies/Home Meds Allergies/Adverse Reactions: Allergies No Known Allergies Allergy (Verified 05/08/17 09:53) Home Medications: Home Meds Medication Instructions Recorded Confirmed Clonazepam [Klonopin] 0.5 mg 06/19/17 Oxycodone HCl/Acetaminophen 06/19/17 [Endocet 5-325 Tablet] Review of Systems - Review of Systems Constitutional: absent: Fatigue, Weight Change, Fevers Eyes: absent: Vision Changes ENT: absent: Hearing Changes, Rhinorrhea Respiratory: absent: SOB, Cough, Sputum, Wheezing Cardiovascular: absent: Chest Pain, Palpitations Gastrointestinal: absent: Abdominal Pain, Constipation, Diarrhea, Nausea, Vomiting Genitourinary Female: absent: Frequency Musculoskeletal: absent: Back Pain, Neck Pain Skin: absent: Rash Neurological: Seizure. absent: Headache, Dizziness, Focal Weakness, Gait Changes, Speech Changes, Facial Droop Hemo/Lymphatic: absent: Easy Bleeding Psychiatric: absent: Anxiety Physical Exam Vital Signs Reviewed: Yes Vital Signs Temp Pulse Resp BP Pulse Ox 06/19/17 10:33 98.3 F 76 18 116/63 99 Temperature: Afebrile Blood Pressure: Normal Pulse: Regular Respiratory Rate: Normal Appearance: Positive for: Well-Appearing, Non-Toxic, Comfortable Pain Distress: None Mental Status: Positive for: Alert and Oriented X 3 - Systems Exam Head: Present: Atraumatic, Normocephalic Pupils: Present: PERRL Extroacular Muscles: Present: EOMI Conjunctiva: Present: Normal Mouth: Present: Moist Mucous Membranes Neck: Present: Normal Range of Motion. No: MIDLINE TENDERNESS Respiratory/Chest: Present: Clear to Auscultation, Good Air Exchange. No: Respiratory Distress, Accessory Muscle Use Cardiovascular: Present: Regular Rate and Rhythm, Normal S1, S2. No: Murmurs Abdomen: Present: Normal Bowel Sounds. No: Tenderness, Distention, Peritoneal Signs Upper Extremity: Present: Normal Inspection. No: Cyanosis, Edema Lower Extremity: Present: Normal Inspection. No: Edema Neurological: Present: GCS=15, CN II-XII Intact, Speech Normal, Gait Normal Skin: Present: Warm, Dry, Normal Color. No: Rashes Psychiatric: Present: Alert, Oriented x 3, Normal Insight, Normal Concentration Medical Decision Making ED Course and Treatment: 06/19/17 11:00 Impression: 26 year old female with change in type of seizure and increased frequency. Plan: -- CT Head without contrast -- Urinalysis -- Labs -- Reassess and disposition Progress Notes: CT head negative. Labs WNL. negative. UA WNL. Patient was given work note to return tmrw with no driving or operating heavy machinery. patient was given keppra refill and instructed to follow-up with her neurologist dr. Nagy for further evaluation of seizures. - Lab Interpretations Lab Results: 06/19/17 11:46 06/19/17 11:46 Lab Results 06/19/17 11:54: Urine Color Light yellow, Urine Appearance Clear, Urine pH 8.0, Ur Specific [place] 1.015, Urine Protein Negative, Urine Glucose (UA) Negative, Urine Ketones Negative, Urine Blood Negative, Urine Nitrate Negative, Urine Bilirubin Negative, Urine Urobilinogen 0.2, Ur Leukocyte Esterase Negative 06/19/17 11:46: Sodium 141, Potassium 3.6, Chloride 108 H, Carbon Dioxide 20 L, Anion Gap 17, BUN 13, Creatinine 0.8, Est GFR ( Amer) > 60, Est GFR (Non- Af Amer) > 60, Random Glucose 96, Calcium 9.1, Phosphorus 3.0, Magnesium 1.9, Total Bilirubin 0.4, AST 16, ALT 17, Alkaline Phosphatase 69, Total Protein 7.2 , Albumin 4.2, Globulin 3.0, Albumin/Globulin Ratio 1.4 06/19/17 11:46: WBC 7.1, RBC 4.39, Hgb 13.2, Hct 38.7, MCV 88.2, MCH 30.1, MCHC 34.1, RDW 12.5, Plt Count 207, MPV 11.6 H, Gran % 56.2, Lymph % (Auto) 34.0, [place] % (Auto) 7.0 H, Eos % (Auto) 2.7, Baso % (Auto) 0.1, Gran # 4.00, Lymph # 2.4, [place] # 0.5, Eos # 0.2, Baso # 0.01 I have reviewed the lab results: Yes - RAD Interpretation Radiology Orders: 06/19/17 11:11 HEAD W/O CONTRAST [CT] Stat - Scribe Statement The provider has reviewed the documentation as recorded by the Scribe 06/19/2017 Karla Erickson Provider Scribe Attestation: All medical record entries made by the Scribe were at my direction and personally dictated by me. I have reviewed the chart and agree that the record accurately reflects my personal performance of the history, physical exam, medical decision making, and the department course for this patient. I have also personally directed, reviewed, and agree with the discharge instructions and disposition. Disposition/Present on Arrival - Present on Arrival Any Indicators Present on Arrival: No History of DVT/PE: No History of Uncontrolled Diabetes: No Urinary Catheter: No History of Decub. Ulcer: No History Surgical Site Infection Following: None - Disposition Have Diagnosis and Disposition been Completed?: Yes Diagnosis: Breakthrough seizure, Seizure disorder Disposition: HOME/ ROUTINE Disposition Time: 12:56 Patient Plan: Discharge Patient Problems: Current Active Problems Problem Status Onset Breakthrough seizure Acute Seizure disorder Chronic Condition: GOOD Discharge Instructions (ExitCare): Epilepsy (ED) Additional Instructions: You need to follow-up with your neurologist due to increased seizure frequency. Take keppra as prescribed. Return to ED if condition worsens. No driving or operating heavy machinery Prescriptions: Levetiracetam [Keppra] 500 mg PO TID #90 tablet Forms: [facility] ([employer]), WORK NOTE
[2017-06-19 11:54] LABS: BASO # 0.01 K/mm3 (0.0-2.0); BASO % 0.1 % (0.0-3.0); EOS # 0.2 (0.0-0.7); EOS % 2.7 % (1.5-5.0); GRAN % 56.2 % (50.0-68.0); HEMOGLOBIN 13.2 g/dL (12.0-16.0); LYMPH # 2.4 (1.2-3.4); MEAN CELL VOLUME 88.2 fl (80.0-105.0); MEAN CORPUSCULAR HEMOGLOBIN 30.1 pg (25.0-35.0); MEAN CORPUSCULAR HGB CONC 34.1 g/dl (31.0-37.0); MEAN PLATELET VOLUME 11.6 fl (7.0-11.0); MONO # 0.5 (0.1-0.6); PLATELET COUNT 207 10^3/uL (120.0-450.0); RBC 4.39 10^6/uL (3.5-6.1); RED CELL DISTRIBUTION WIDTH 12.5 % (11.5-14.5); WHITE BLOOD COUNT 7.1 10^3/ul (4.5-11.0)
[2017-06-19 11:58] LABS: URINE BILIRUBIN NEGATIVE (NEGATIVE); URINE BLOOD NEGATIVE (NEGATIVE); URINE GLUCOSE (UA) NEGATIVE (NEGATIVE); URINE LEUKOCYTE ESTERASE NEGATIVE Leu/uL (NEGATIVE); URINE NITRATE NEGATIVE (NEGATIVE); URINE PROTEIN NEGATIVE mg/dL (<30 mg/dL); URINE UROBILINOGEN 0.2 E.U./dL (<1 E.U./dL)
[2017-06-19 12:00] LABS: ALB/GLOB RATIO 1.4 (1.1-1.8); ALBUMIN 4.2 g/dL (3.0-4.8); ALT/SGPT 17 U/L (7-56); AST/SGOT 16 U/L (15-39); BLOOD UREA NITROGEN 13 mg/dL (7-21); CALCIUM 9.1 mg/dL (8.4-10.5); GFR AFRICAN-AMERICAN > 60; GFR NON-AFRICAN AMERICAN > 60; MAGNESIUM 1.9 mg/dL (1.7-2.2)
[2017-06-19 12:08] LABS: URINE APPEARANCE CLEAR (CLEAR); URINE COLOR LIGHT YELLOW (YELLOW)
--- NOTE | 2017-06-19 12:44 | CT ---
PROCEDURE: CT HEAD WITHOUT CONTRAST. HISTORY: seizure COMPARISON: 04/27/2017 TECHNIQUE: Axial computed tomography images were obtained through the head/brain without intravenous contrast. Radiation dose: Total exam DLP = 746 mGy-cm. This CT exam was performed using one or more of the following dose reduction techniques: Automated exposure control, adjustment of the mA and/or kV according to patient size, and/or use of iterative reconstruction technique. FINDINGS: HEMORRHAGE: No intracranial hemorrhage. BRAIN: No mass effect or edema. No atrophy or chronic microvascular ischemic changes. VENTRICLES: Unremarkable. No hydrocephalus. CALVARIUM: Unremarkable. PARANASAL SINUSES: Unremarkable as visualized. No significant inflammatory changes. MASTOID AIR CELLS: Unremarkable as visualized. No inflammatory changes. OTHER FINDINGS: None. IMPRESSION: Normal CT of the Head.
[2017-06-19 13:45] VITALS: BP 114/63; PULSE 72; RESP 16; O2SAT 100
== END 2017-06-19 13:42 | disposition home or self-care (01) ==
LOC: ED 10:25
DX: G40.909 Epilepsy, unspecified, not intractable, without status epilepticus (principal)

== ENCOUNTER 2017-07-02 11:33 | Emergency (ER) | payer OTHER ==
[2017-07-02 11:34] VITALS: BMI 35.5
[2017-07-02] MEDS ORDERED: Sodium Chloride 0.9% 1,000 ML IV STA (11:49)
--- NOTE | 2017-07-02 11:55 | ED PDOC ---
Arrival/HPI - General Chief Complaint: Seizure Time Seen by Provider: 07/02/17 11:34 Historian: Patient - History of Present Illness Narrative History of Present Illness (Text): 07/02/17 11:55 A 26 year old female, whose past medical history includes seizure disorder, was brought in by EMS s/p seizure episode prior to arrival complaining of headache. Patient reports she was walking and trying to get in the car when she had a seizure and fell. Patient notes small abrasions on right foot and right side of head. Patient hasn't followed up with neurologist for some time. Patient denies any other complaints at this time. Last tetanus shot unknown. Neurologist: Dr. Nagy Medications: Keppra, [place]ohn Time/Duration: Prior to Arrival Symptom Onset: Sudden Symptom Course: Unchanged Activities at Onset: Rest Past Medical History - Provider Review Nursing Documentation Reviewed: Yes - Infectious Disease Hx of Infectious Diseases: None - Tetanus Immunization Tetanus Immunization: Unknown - Reproductive Menopause: No - Cardiac Hx Cardiac Disorders: No - Pulmonary Hx Respiratory Disorders: No - Neurological Hx Neurological Disorder: Yes Hx Seizures: Yes - HEENT Hx HEENT Disorder: No - Renal Hx Renal Disorder: No - Endocrine/Metabolic Hx Endocrine Disorders: No - Hematological/Oncological Hx Blood Transfusions: No Hx Blood Transfusion Reaction: No - Integumentary Hx Dermatological Disorder: No - Musculoskeletal/Rheumatological Hx Musculoskeletal Disorders: Yes Hx Falls: Yes - Gastrointestinal Hx Gastrointestinal Disorders: No - Genitourinary/Gynecological Hx Genitourinary Disorders: No - Psychiatric Hx Psychophysiologic Disorder: No Hx Substance Use: No - Past Surgical History Past Surgical History: No Previous - Surgical History Hx Section: Yes (2012) Other/Comment: gallstones removed - Anesthesia Hx Anesthesia: Yes Hx Anesthesia Reactions: No Hx Malignant Hyperthermia: No - Suicidal Assessment Feels Threatened In Home Enviroment: No Family/Social History - Physician Review Nursing Documentation Reviewed: Yes Family/Social History: No Known Family HX Smoking Status: Never Smoked Hx Alcohol Use: No Hx Substance Use: No Allergies/Home Meds Allergies/Adverse Reactions: Allergies No Known Allergies Allergy (Verified 07/02/17 11:43) Home Medications: Home Meds Medication Instructions Recorded Confirmed Clonazepam [Klonopin] 0.5 mg PO DAILY 06/19/17 07/02/17 Review of Systems - Physician Review All systems were reviewed & negative as marked: Yes - Review of Systems Skin: Other (small abrasion on right foot and right side of head) Neurological: Headache, Seizure Physical Exam Vital Signs Reviewed: Yes Vital Signs Temp Pulse Resp BP Pulse Ox 07/02/17 14:05 98 F 66 18 112/60 100 07/02/17 11:45 98.2 F 07/02/17 11:41 109 H 16 121/67 98 07/02/17 11:39 104 H 20 121/67 97 Blood Pressure: Normal Pulse: Tachycardic Respiratory Rate: Normal Appearance: Positive for: Well-Appearing, Non-Toxic, Comfortable Pain Distress: None Mental Status: Positive for: Alert and Oriented X 3 Finger Stick Blood Glucose: 108 - Systems Exam Head: Present: Normocephalic, Abrasion (small abrasion on right side of head) Pupils: Present: PERRL Extroacular Muscles: Present: EOMI Conjunctiva: Present: Normal Mouth: Present: Moist Mucous Membranes Neck: Present: Normal Range of Motion Respiratory/Chest: Present: Clear to Auscultation, Good Air Exchange. No: Respiratory Distress, Accessory Muscle Use Cardiovascular: Present: Regular Rate and Rhythm, Normal S1, S2. No: Murmurs Abdomen: Present: Normal Bowel Sounds. No: Tenderness, Distention, Peritoneal Signs Back: Present: Normal Inspection Upper Extremity: Present: Normal Inspection. No: Cyanosis, Edema Lower Extremity: Present: Normal Inspection. No: Edema Neurological: Present: GCS=15, CN II-XII Intact, Speech Normal Skin: Present: Warm, Dry, Normal Color, Abrasion (small abrasion on right foot) . No: Rashes Psychiatric: Present: Alert, Oriented x 3, Normal Insight, Normal Concentration Medical Decision Making ED Course and Treatment: 07/02/17 11:52 Impression: A 26 year old female s/p seizure episode. Plan: -- EKG -- CT head -- labs -- Tylenol, IV fluids -- Urinalysis -- Reassess and disposition Prior Visits: Notes and results from previous visits were reviewed. Patient last reported to the emergency department on 06/19/17 for evaluation of increased frequency of seizures. Progress Notes: EKG: Ordered, reviewed, and independently interpreted the EKG. Rate : 100 BPM Rhythm : NSR Interpretation : No ST/T wave changes 07/02/17 13:27 CT HEAD WITHOUT CONTRAST Creator : Rao Cook MD FINDINGS: HEMORRHAGE: No intracranial hemorrhage. BRAIN: No mass effect or edema. No atrophy or chronic microvascular ischemic changes. VENTRICLES: Unremarkable. No hydrocephalus. CALVARIUM: Unremarkable. . 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 The remaining visualized paranasal sinuses are well-developed and currently well- aerated. MASTOID AIR CELLS: Unremarkable as visualized. No inflammatory changes. IMPRESSION: No evidence of acute intracranial hemorrhage. Mild right frontoparietal scalp swelling 07/02/17 13:27 Patient is sleeping and in no acute distress. No seizure activity in emergency room. Patient advised follow up outpatient. Patient in agreement with plan to be discharged home. Patient is stable for discharge. 07/02/17 16:17 pt later co of headache, requesting additional analgesia before leaving. pt walked out prior to urine result and pain med - Lab Interpretations Lab Results: 07/02/17 12:00 07/02/17 12:00 Lab Results 07/02/17 14:35: Urine Color Yellow, Urine Appearance Clear, Urine pH 6.0, Ur Specific [place] 1.025, Urine Protein 30 H, Urine Glucose (UA) Negative, Urine Ketones Negative, Urine Blood Trace-intact H, Urine Nitrate Negative, Urine Bilirubin Negative, Urine Urobilinogen 0.2, Ur Leukocyte Esterase Small H, Urine RBC 0 - 2, Urine WBC 15 - 20, Ur Epithelial Cells 4 - 5, Urine Bacteria Few, Urine HCG, Qual Negative 07/02/17 12:00: Beta HCG, Quant < 2.39 07/02/17 12:00: PT 10.7, INR 0.99, APTT 25.7 07/02/17 12:00: Sodium 142, Potassium 4.5, Chloride 106, Carbon Dioxide 21, Anion Gap 20, BUN 10, Creatinine 0.7, Est GFR ( Amer) > 60, Est GFR (Non- Af Amer) > 60, Random Glucose 100, Calcium 9.3, Total Bilirubin 0.5, AST 24, ALT 22, Alkaline Phosphatase 75, Total Protein 8.2, Albumin 4.7, Globulin 3.4, Albumin/Globulin Ratio 1.4 07/02/17 12:00: WBC 8.2, RBC 4.48, Hgb 13.6, Hct 39.4, MCV 87.9, MCH 30.4, MCHC 34.5, RDW 12.7, Plt Count 255, MPV 11.0, Gran % 67.8, Lymph % (Auto) 26.6, [place] % (Auto) 3.7, Eos % (Auto) 1.8, Baso % (Auto) 0.1, Gran # 5.53, Lymph # 2.2, Cascade # 0.3, Eos # 0.2, Baso # 0.01 I have reviewed the lab results: Yes - RAD Interpretation Radiology Orders: 07/02/17 11:47 HEAD W/O CONTRAST [CT] Stat - EKG Interpretation Interpreted by ED Physician: Yes Type: 12 lead EKG - Medication Orders Current Medication Orders: Discontinued Medications Acetaminophen (Tylenol 325mg Tab) 975 mg PO STAT STA Stop: 07/02/17 11:50 Last Admin: 07/02/17 12:23 Dose: 975 mg Sodium Chloride (Sodium Chloride 0.9%) 1,000 mls @ 999 mls/hr IV .Q1H1M STA Stop: 07/02/17 12:49 Last Admin: 07/02/17 12:22 Dose: 999 mls/hr Ketorolac Tromethamine (Toradol) 30 mg IM STAT STA Stop: 07/02/17 14:24 Last Admin: 07/02/17 14:36 Dose: Not Given Non-Admin Reason: Patient Refused - Scribe Statement The provider has reviewed the documentation as recorded by the Neftali Aden Provider Scribe Attestation: All medical record entries made by the Robynibmark were at my direction and personally dictated by me. I have reviewed the chart and agree that the record accurately reflects my personal performance of the history, physical exam, medical decision making, and the department course for this patient. I have also personally directed, reviewed, and agree with the discharge instructions and disposition. Disposition/Present on Arrival - Present on Arrival Any Indicators Present on Arrival: No History of DVT/PE: No History of Uncontrolled Diabetes: No Urinary Catheter: No History of Decub. Ulcer: No History Surgical Site Infection Following: None - Disposition Have Diagnosis and Disposition been Completed?: Yes Diagnosis: Seizure Disposition: HOME/ ROUTINE Disposition Time: 02:00 Condition: STABLE Discharge Instructions (ExitCare): Recurrent Seizures in Adults (ED) Additional Instructions: return to emergency room with worsneing symtpoms or concerns. Referrals: [facility] [Outside] - Follow up with primary [facility] [Outside] - Follow up with primary [facility] Villegas Remalik, [Primary Care Provider] - Follow up with primary Kishore Nagy MD [Staff Provider] - Follow up with primary Valente Nagy MD [Staff Provider] - Follow up with primary Forms: [employer] (German)
[2017-07-02 12:12] LABS: BASO # 0.01 K/mm3 (0.0-2.0); BASO % 0.1 % (0.0-3.0); EOS # 0.2 (0.0-0.7); EOS % 1.8 % (1.5-5.0); GRAN # 5.53 (1.4-6.5); GRAN % 67.8 % (50.0-68.0); HEMATOCRIT 39.4 % (36.0-48.0); LYMPH # 2.2 (1.2-3.4); LYMPH % 26.6 % (22.0-35.0); MEAN CELL VOLUME 87.9 fl (80.0-105.0); MEAN CORPUSCULAR HEMOGLOBIN 30.4 pg (25.0-35.0); MEAN CORPUSCULAR HGB CONC 34.5 g/dl (31.0-37.0); MONO # 0.3 (0.1-0.6); MONO % 3.7 % (1.0-6.0); RED CELL DISTRIBUTION WIDTH 12.7 % (11.5-14.5); WHITE BLOOD COUNT 8.2 10^3/ul (4.5-11.0)
[2017-07-02 12:20] LABS: INR 0.99 (0.93-1.08); PARTIAL THROMBOPLASTIN TIME 25.7 Seconds (23.7-30.8)
[2017-07-02 12:22] LABS: ALB/GLOB RATIO 1.4 (1.1-1.8); ALKALINE PHOSPHATASE 75 U/L (38-133); ALT/SGPT 22 U/L (7-56); AST/SGOT 24 U/L (15-39); BILIRUBIN,TOTAL 0.5 mg/dL (0.2-1.3); BLOOD UREA NITROGEN 10 mg/dL (7-21); CALCIUM 9.3 mg/dL (8.4-10.5); CARBON DIOXIDE 21 mmol/L (21-33); CHLORIDE 106 mmol/L (98-107); GFR AFRICAN-AMERICAN > 60; GLUCOSE,RANDOM 100 mg/dL (70-110); POTASSIUM 4.5 mmol/L (3.6-5.0); SODIUM 142 mmol/L (132-148); TOTAL PROTEIN 8.2 g/dL (5.8-8.3)
--- NOTE | 2017-07-02 13:25 | CT ---
PROCEDURE: CT HEAD WITHOUT CONTRAST. HISTORY: seizure/head trauma COMPARISON: Comparison made with CT scan brain 06/19/2017 TECHNIQUE: Axial computed tomography images were obtained through the head/brain without intravenous contrast. Radiation dose: Total exam DLP = 725.84 mGy-cm. This CT exam was performed using one or more of the following dose reduction techniques: Automated exposure control, adjustment of the mA and/or kV according to patient size, and/or use of iterative reconstruction technique. FINDINGS: HEMORRHAGE: No intracranial hemorrhage. BRAIN: No mass effect or edema. No atrophy or chronic microvascular ischemic changes. VENTRICLES: Unremarkable. No hydrocephalus. CALVARIUM: Unremarkable. . 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 The remaining visualized paranasal sinuses are well-developed and currently well-aerated. MASTOID AIR CELLS: Unremarkable as visualized. No inflammatory changes. OTHER FINDINGS: None. IMPRESSION: No evidence of acute intracranial hemorrhage. . Mild right frontoparietal scalp swelling
[2017-07-02 14:06] VITALS: BP 112/60; PULSE 66; RESP 18; TEMP 98; O2SAT 100
[2017-07-02 14:45] LABS: URINE BILIRUBIN NEGATIVE (NEGATIVE); URINE BLOOD TRACE-INTACT (NEGATIVE); URINE GLUCOSE (UA) NEGATIVE (NEGATIVE); URINE KETONE NEGATIVE (NEGATIVE); URINE LEUKOCYTE ESTERASE SMALL Leu/uL (NEGATIVE); URINE PROTEIN 30 mg/dL (<30 mg/dL); URINE UROBILINOGEN 0.2 E.U./dL (<1 E.U./dL)
[2017-07-02 14:48] LABS: URINE APPEARANCE CLEAR (CLEAR); URINE COLOR YELLOW (YELLOW)
[2017-07-02 14:59] LABS: URINE BACTERIA FEW (NEG); URINE RBC 0 - 2 /hpf (0-2); URINE WBC 15 - 20 /hpf (0-6)
--- NOTE | 2017-07-02 21:02 | CARD ---
APPROVED REPORT EKG Measurement Heart [id number] <Conclusion> Normal sinus rhythm Normal ECG
== END 2017-07-02 14:36 | disposition home or self-care (01) ==
LOC: ED 11:33
DX: G40.909 Epilepsy, unspecified, not intractable, without status epilepticus (principal)
CPT/HCPCS: 70450; 80053; 81001; 84702; 84703; 85025; 85610; 85730; 87086; 93005; 96360; 99285; J7040

== ENCOUNTER 2018-09-23 14:43 | Observation (INO) | payer MEDICAID, OTHER ==
[2018-09-23 15:03] VITALS: BMI 45.1
--- NOTE | 2018-09-23 16:20 | ED PDOC ---
Arrival/HPI - General Chief Complaint: Shortness Of Breath Time Seen by Provider: 09/23/18 14:49 Historian: Patient - History of Present Illness Narrative History of Present Illness (Text): 09/23/18 15:15 28 F with PMHx of Epilepsy (takes medication 2 times every day for this) presents with cc of shortness of breath, left-sided chest pressure, throbbing headache, dizziness, generalized weakness, noting she was at work during onset. 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 Patient states she has felt chest pressure for whole week. Patient notes nausea, trouble keeping eyes open, shaking right arm, and says she could barely walk and felt as if she was going to pass out. Pt denies any feeling of anxiety or any other complaints. Time/Duration: Prior to Arrival (Patient reports onset while at work), 1 week (Patient reports left sided chest pressure for whole week ) Symptom Onset: Sudden Symptom Course: Unchanged Context: Work Past Medical History - Provider Review Nursing Documentation Reviewed: Yes - Infectious Disease Hx of Infectious Diseases: None - Tetanus Immunization Tetanus Immunization: Unknown - Cardiac Hx Cardiac Disorders: No - Pulmonary Hx Respiratory Disorders: No - Neurological Hx Neurological Disorder: Yes Hx Seizures: Yes - HEENT Hx HEENT Disorder: No - Renal Hx Renal Disorder: No - Endocrine/Metabolic Hx Endocrine Disorders: No - Hematological/Oncological Hx Blood Transfusions: No Hx Blood Transfusion Reaction: No - Integumentary Hx Dermatological Disorder: No - Musculoskeletal/Rheumatological Hx Musculoskeletal Disorders: Yes Hx Falls: Yes - Gastrointestinal Hx Gastrointestinal Disorders: No - Genitourinary/Gynecological Hx Genitourinary Disorders: No - Psychiatric Hx Psychophysiologic Disorder: No Hx Substance Use: No - Past Surgical History Past Surgical History: No Previous - Surgical History Hx Section: Yes (2012) Other/Comment: gallstones removed - Anesthesia Hx Anesthesia: Yes Hx Anesthesia Reactions: No Hx Malignant Hyperthermia: No - Suicidal Assessment Feels Threatened In Home Enviroment: No Family/Social History - Physician Review Nursing Documentation Reviewed: Yes Family/Social History: No Known Family HX Smoking Status: Never Smoked Hx Alcohol Use: No Hx Substance Use: No Allergies/Home Meds Allergies/Adverse Reactions: Allergies No Known Allergies Allergy (Verified 09/23/18 14:59) Home Medications: Home Meds Medication Instructions Recorded Confirmed Clonazepam [Klonopin] 0.5 mg PO DAILY 06/19/17 09/23/18 Review of Systems - Physician Review All systems were reviewed & negative as marked: Yes (All other systems negative except that noted in the HPI.) Physical Exam - Physical Exam Narrative Physical Exam (Text): Gen: VS reviewed, alert, well developed, well nourished, nontoxic, mild distress. Tremulous. Tremor in right hand. Appears generally weak. Eye: EOMI, PERRL. Pt has eyes closed for comfort. No nystagmus. Neck: no JVD, supple, no adenopathy CV: regular rate, regular rhythm, no rubs,no murmur, S1, S2 Pulm: no distress, clear to auscultation, no wheeze, no rhonchi, breath sounds equal, no rales Abd: soft, nontender, no guarding, no rebound, no rigidity Ext: no edema Skin: good color, no rash, no cyanosis Psych: responds appropriately to questions, normal affect Neuro: oriented x3, CN2-12 intact grossly, motor intact, sensation intact Vital Signs Reviewed: Yes Vital Signs Temp Pulse Resp BP Pulse Ox 09/23/18 14:43 97.7 F 60 18 118/62 97 Temperature: Afebrile Blood Pressure: Normal Pulse: Regular Respiratory Rate: Normal Appearance: Positive for: Well-Appearing, Non-Toxic Pain Distress: Mild Mental Status: Positive for: Alert and Oriented X 3 Medical Decision Making ED Course and Treatment: 09/23/18 15:15 Impression: 28 F presents to Emergency department with cc of shortness of breath, chest pain, headache, dizziness, generalized weakness, noting she was at work during onset. 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 Patient last presented to the Emergency department on 07/02/17, brought in by EMS s/p seizure episode prior to arrival complaining of headache. Patient was discharged home in stable condition with diagnosis of seizure, and directed to follow up with PMD. Progress Notes: 09/23/18 18:08 patient no longer has tremor, appears better 09/23/18 19:25 on reassessment patient states she still feels generally weak and has been feeling intermittent episodes of chest tightness 09/23/18 19:[address] ann to the hospitalist service. patient to be admitted for observation of multitude of symptoms with no apparent focal etiology. ddx remains broad. given negative tests in the Emergency department and marginal clinical response i would like to admit patient. resident has also been made aware of admit. 09/23/18 19:45 - RAD Interpretation Narrative RAD Interpretations (Text): X-Ray of chest reviewed by radiologist, shows: Dictator : Libby Wan MD Report Date : 09/23/2018 17:11:38 FINDINGS: Examination limited by habitus. LUNGS: No focal consolidation. Please note that chest x-ray has limited sensitivity for the detection of pulmonary masses. PLEURA: No significant pleural effusion identified. No definite pneumothorax . CARDIOVASCULAR: Heart size appears within normal limits. No significant atherosclerotic calcification present. OSSEOUS STRUCTURES: No acute osseous abnormality identified. VISUALIZED UPPER ABDOMEN: Unremarkable. OTHER FINDINGS: None. IMPRESSION: No focal consolidation identified. CT of head reviewed by radiologist, shows: Dictator : Libby Wan MD Report Date : 09/23/2018 17:04:27 FINDINGS: HEMORRHAGE: No intracranial hemorrhage. BRAIN: No mass effect or edema. No atrophy or chronic microvascular ischemic changes. VENTRICLES: No hydrocephalus. CALVARIUM: Unremarkable. PARANASAL SINUSES: Unremarkable as visualized. No significant inflammatory changes. MASTOID AIR CELLS: Unremarkable as visualized. No inflammatory changes. OTHER FINDINGS: None. IMPRESSION: No acute intracranial pathology identified. 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 Rate: 55 BPM Rhythm: NSR Interpretation: Normal qrs. No st-t wave abnormality Interpreted by ED Physician: Yes Type: 12 lead EKG - Medication Orders Current Medication Orders: Discontinued Medications Lorazepam (Ativan) 1 mg IVP ONCE ONE; Protocol Stop: 09/23/18 15:30 Meclizine HCl (Antivert) 25 mg PO STAT STA Stop: 09/23/18 15:56 Ondansetron HCl (Zofran Inj) 4 mg IVP STAT STA Stop: 09/23/18 15:56 - Scribe Statement The provider has reviewed the documentation as recorded by the Scribe Quynh Roche All medical record entries made by the Scribe were at my direction and personally dictated by me. I have reviewed the chart and agree that the record accurately reflects my personal performance of the history, physical exam, medical decision making, and the department course for this patient. I have also personally directed, reviewed, and agree with the discharge instructions and disposition. Disposition/Present on Arrival - Present on Arrival Any Indicators Present on Arrival: No History of DVT/PE: No History of Uncontrolled Diabetes: No Urinary Catheter: No History of Decub. Ulcer: No History Surgical Site Infection Following: None - Disposition Have Diagnosis and Disposition been Completed?: Yes Diagnosis: Chest pain Disposition: HOSPITALIZED Disposition Time: 19:45 Patient Plan: Observation Patient Problems: Current Active Problems Problem Status Onset Chest pain Acute Condition: STABLE Discharge Instructions (ExitCare): Chest Pain (ED) Referrals: PCP,NO [Primary Care Provider] - Follow up with primary Forms: [employer] (Bulgarian)
[2018-09-23 16:52] LABS: BASO # 0.02 K/mm3 (0.0-2.0); BASO % 0.2 % (0.0-3.0); EOS # 0.2 (0.0-0.7); EOS % 2.6 % (1.5-5.0); GRAN # 4.67 (1.4-6.5); GRAN % 49.9 % (50.0-68.0); HEMOGLOBIN 14.6 g/dL (12.0-16.0); LYMPH % 42.4 % (22.0-35.0); MEAN CELL VOLUME 89.3 fl (80.0-105.0); MEAN CORPUSCULAR HGB CONC 33.6 g/dl (31.0-37.0); MEAN PLATELET VOLUME 11.4 fl (7.0-11.0); MONO # 0.5 (0.1-0.6); MONO % 4.9 % (1.0-6.0); RBC 4.87 10^6/uL (3.5-6.1); RED CELL DISTRIBUTION WIDTH 13.1 % (11.5-14.5); WHITE BLOOD COUNT 9.4 10^3/uL (4.5-11.0)
--- NOTE | 2018-09-23 17:08 | CT ---
Date of service: 09/23/2018 PROCEDURE: CT HEAD WITHOUT CONTRAST. HISTORY: headache COMPARISON: Noncontrast head CT performed 07/02/17 TECHNIQUE: Axial computed tomography images were obtained through the head/brain without intravenous contrast. Radiation dose: Total exam DLP = 874.53 mGy-cm. This CT exam was performed using one or more of the following dose reduction techniques: Automated exposure control, adjustment of the mA and/or kV according to patient size, and/or use of iterative reconstruction technique. FINDINGS: HEMORRHAGE: No intracranial hemorrhage. BRAIN: No mass effect or edema. No atrophy or chronic microvascular ischemic changes. VENTRICLES: No hydrocephalus. CALVARIUM: Unremarkable. PARANASAL SINUSES: Unremarkable as visualized. No significant inflammatory changes. MASTOID AIR CELLS: Unremarkable as visualized. No inflammatory changes. OTHER FINDINGS: None. IMPRESSION: No acute intracranial pathology identified.
--- NOTE | 2018-09-23 17:15 | RAD ---
HISTORY: chest pain COMPARISON: Chest x-ray performed 02/01/17 TECHNIQUE: Chest, one view. FINDINGS: Examination limited by habitus. LUNGS: No focal consolidation. Please note that chest x-ray has limited sensitivity for the detection of pulmonary masses. PLEURA: No significant pleural effusion identified. No definite pneumothorax . CARDIOVASCULAR: Heart size appears within normal limits. No significant atherosclerotic calcification present. OSSEOUS STRUCTURES: No acute osseous abnormality identified. VISUALIZED UPPER ABDOMEN: Unremarkable. OTHER FINDINGS: None. IMPRESSION: No focal consolidation identified.
[2018-09-23 17:22] LABS: BLOOD UREA NITROGEN 13 mg/dL (7-21); CALCIUM 9.5 mg/dL (8.4-10.5); GFR NON-AFRICAN AMERICAN > 60
[2018-09-23 17:25] LABS: ALB/GLOB RATIO 1.2 (1.1-1.8); ALBUMIN 4.4 g/dL (3.0-4.8); ALT/SGPT 22 U/L (7-56); AST/SGOT 36 U/L (14-36)
[2018-09-23 17:30] LABS: TROPONIN I < 0.01 ng/mL
[2018-09-23 19:09] LABS: BARBITURATES, UR NEGATIVE (NEGATIVE); BENZODIAZEPINES, UR NEGATIVE (NEGATIVE); OPIATES, UR NEGATIVE (NEGATIVE); PHENCYCLIDINE, UR NEGATIVE (NEGATIVE)
[2018-09-23 19:56] LABS: INR 1.07; PARTIAL THROMBOPLASTIN TIME 34.5 Seconds (25.1-36.5); PROTHROMBIN TIME 12.2 SECONDS (9.4-12.5)
[2018-09-23 20:47] LABS: D DIMER < 200 ng/mlDDU (0-243)
--- NOTE | 2018-09-23 20:47 | CP.PCM.HP ---
<TaymakenzieJustin andino - Last Filed: 09/23/18 20:43> History of Present Illness - History of Present Illness History of Present Illness: Rony Toney PGY2 IM Resident - History and Physical for Dr. Galindo CC: Chest Pressure HPI: 28 year old female with past medical history of seizure disorder, cholecystitis who presents with left sided chest pressure with radiation to her right shoulder, generalized weakness, fatigue and dizziness for the past few hours prior to presentation. 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 Patient rates chest pressure as 5/10. Pain is reproducible with palpation. Denies recent infection, sick contacts, cough, fever, nausea, vomiting, abdominal discomfort, syncope, seizure like activity, post-ictal state. Patient indicates poor oral intake today, with limited fluids and without food. Patient reports previous episodes of weakness, fatigue and confusion with sudden onset in her past. She reports medication compliance and close follow up with Dr. Nagy her neurologist. PMH: Seizure disorder, Cholelithiasis PSH: , Cholecystectomy Fhx: Mother with DM, grandmother has unknown cancers SOCHx: Tobacco: denies, ETOH: Social, ID: Denies - Works in [employer] ALL: NKDA MEDS: Keppra PMD: none Neurologist: Dr. Nagy Present on Admission - Present on Admission Any Indicators Present on Admission: No Review of Systems - Review of Systems All systems: reviewed and no additional remarkable complaints except (as me ntioned in hpi) Past Patient History - Infectious Disease Hx of Infectious Diseases: None - Tetanus Immunizations Tetanus Immunization: Unknown - Past Social History Smoking Status: Never Smoked Alcohol: None Drugs: Denies - CARDIAC Hx Cardiac Disorders: No - PULMONARY Hx Respiratory Disorders: No - NEUROLOGICAL Hx Neurological Disorder: Yes Hx Seizures: Yes - HEENT Hx HEENT Problems: No - RENAL Hx Chronic Kidney Disease: No - ENDOCRINE/METABOLIC Hx Endocrine Disorders: No - HEMATOLOGICAL/ONCOLOGICAL Hx Blood Transfusions: No Hx Blood Transfusion Reaction: No - INTEGUMENTARY Hx Dermatological Problems: No - MUSCULOSKELETAL/RHEUMATOLOGICAL Hx Musculoskeletal Disorders: Yes Hx Falls: Yes - GASTROINTESTINAL Hx Gastrointestinal Disorders: No - GENITOURINARY/GYNECOLOGICAL Hx Genitourinary Disorders: No - PSYCHIATRIC Hx Psychophysiologic Disorder: No Hx Substance Use: No - SURGICAL HISTORY Hx Section: Yes (2013) Other/Comment: gallstones removed - ANESTHESIA Hx Anesthesia: Yes Hx Anesthesia Reactions: No Hx Malignant Hyperthermia: No Meds Allergies/Adverse Reactions: Allergies Allergy/AdvReac Type Severity Reaction Status Date / Time No Known Allergies Allergy Verified 09/23/18 14:59 Physical Exam - Constitutional Appears: No Acute Distress - Head Exam Head Exam: ATRAUMATIC, NORMAL INSPECTION, NORMOCEPHALIC - Eye Exam Eye Exam: EOMI, PERRL - ENT Exam ENT Exam: Mucous Membranes Dry - Respiratory Exam Respiratory Exam: Clear to Auscultation Bilateral, NORMAL BREATHING PATTERN. absent: Rhonchi, Wheezes - Cardiovascular Exam Cardiovascular Exam: Bradycardia, REGULAR RHYTHM, +S1, +S2 - GI/Abdominal Exam GI & Abdominal Exam: Normal Bowel Sounds, Soft. absent: Firm, Guarding - Extremities Exam Extremities exam: Positive for: normal inspection. Negative for: calf te nderness, pedal edema - Neurological Exam Neurological exam: Alert, CN II-XII Intact, Oriented x3, Reflexes Normal Additional comments: motor and sensory grossly intact - Psychiatric Exam Psychiatric exam: Normal Mood - Skin Skin Exam: Dry, Intact Results - Vital Signs Recent Vital Signs: Last Vital Signs Temp 98 F 09/23/18 16:43 Pulse 60 09/23/18 18:55 Resp 19 09/23/18 18:55 BP 130/70 09/23/18 16:43 Pulse Ox 98 09/23/18 18:55 - Labs Result Diagrams: 09/23/18 16:43 09/23/18 16:43 Labs: Laboratory Results - last 24 hr 09/23/18 09/23/18 09/23/18 16:43 16:43 17:50 WBC 9.4 RBC 4.87 Hgb 14.6 Hct 43.5 MCV 89.3 MCH 30.0 MCHC 33.6 RDW 13.1 Plt Count 279 MPV 11.4 H Gran % 49.9 L Lymph % (Auto) 42.4 H [place] % (Auto) 4.9 Eos % (Auto) 2.6 Baso % (Auto) 0.2 Gran # 4.67 Lymph # (Auto) 4.0 H [place] # (Auto) 0.5 Eos # (Auto) 0.2 Baso # (Auto) 0.02 PT INR APTT Sodium 139 Potassium 4.7 Chloride 107 Carbon Dioxide 23 Anion Gap 14 BUN 13 Creatinine 0.6 L Est GFR ( Amer) > 60 Est GFR (Non-Af Amer) > 60 Random Glucose 84 Calcium 9.5 Magnesium 2.0 Total Bilirubin 0.5 AST 36 ALT 22 Alkaline Phosphatase 80 Total Creatine Kinase 192 Troponin I < 0.01 Total Protein 8.1 Albumin 4.4 Globulin 3.6 Albumin/Globulin Ratio 1.2 TSH 3rd Generation Urine Opiates Screen Negative Urine Methadone Screen Negative Ur Barbiturates Screen Negative Ur Phencyclidine Scrn Negative Ur Amphetamines Screen Negative U Benzodiazepines Scrn Negative U Oth Cocaine Metabols Negative U Cannabinoids Screen Negative 09/23/18 09/23/18 18:57 18:57 WBC RBC Hgb Hct MCV MCH MCHC RDW Plt Count MPV Gran % Lymph % (Auto) [place] % (Auto) Eos % (Auto) Baso % (Auto) Gran # Lymph # (Auto) [place] # (Auto) Eos # (Auto) Baso # (Auto) PT 12.2 INR 1.07 APTT 34.5 Sodium Potassium Chloride Carbon Dioxide Anion Gap BUN Creatinine Est GFR ( Amer) Est GFR (Non-Af Amer) Random Glucose Calcium Magnesium Total Bilirubin AST ALT Alkaline Phosphatase Total Creatine Kinase Troponin I Total Protein Albumin Globulin Albumin/Globulin Ratio TSH 3rd Generation 0.96 Urine Opiates Screen Urine Methadone Screen Ur Barbiturates Screen Ur Phencyclidine Scrn Ur Amphetamines Screen U Benzodiazepines Scrn U Oth Cocaine Metabols U Cannabinoids Screen Assessment & Plan - Assessment and Plan (Free Text) Assessment: 28 year old female with past medical history of seizure disorder, cholecystitis who presents to [facility] [place] private vehicle with 3 hour history of left sided chest pressure and generalized fatigue Plan: Chest Pressure - Echocardiogram(02/03/17): EF 55%, trace AR/TR/MR/PI, RVSP 29, no vegetations noted - UDS Negative - Cardio Consult - Serial troponins - Serial EKGs - Heart Score: 1 point, Low Risk Seizure disorder - Head CT w/o contrast(09/23/18): negative for acute intracranial findings - CXR(09/23/18): No focal consolidation, unremarkable - UDS: Negative - Brain MRI with and without contrast(02/01/17): No evidence of acute infarct, enhanced mass lesion or abnormal enhancement in the brain - Follows outpatient with Dr. Nagy - Resume Keppra 500mg QAM, 1000mg QPM - Seizure precautions - Fall precautions GI/DVT ppx - Pepcid - SCD Patient seen, case and plan discussed and approved by attending, Dr. Galindo - Date & Time Date: 09/23/18 Time: 20:45 <Fanny Galindo - Last Filed: 09/24/18 06:36> Results - Vital Signs Recent Vital Signs: Last Vital Signs Temp 97.4 F L 09/24/18 05:47 Pulse 46 L 09/24/18 05:47 Resp 20 09/24/18 05:47 BP 104/65 09/24/18 05:47 Pulse Ox 94 L 09/24/18 05:47 - Labs Result Diagrams: 09/24/18 05:20 09/23/18 16:43 Labs: Laboratory Results - last 24 hr 09/23/18 09/23/18 09/23/18 16:43 16:43 17:50 WBC 9.4 RBC 4.87 Hgb 14.6 Hct 43.5 MCV 89.3 MCH 30.0 MCHC 33.6 RDW 13.1 Plt Count 279 MPV 11.4 H Gran % 49.9 L Lymph % (Auto) 42.4 H [place] % (Auto) 4.9 Eos % (Auto) 2.6 Baso % (Auto) 0.2 Gran # 4.67 Lymph # (Auto) 4.0 H [place] # (Auto) 0.5 Eos # (Auto) 0.2 Baso # (Auto) 0.02 PT INR APTT D-Dimer, Quantitative Sodium 139 Potassium 4.7 Chloride 107 Carbon Dioxide 23 Anion Gap 14 BUN 13 Creatinine 0.6 L Est GFR ( Amer) > 60 Est GFR (Non-Af Amer) > 60 Random Glucose 84 Calcium 9.5 Magnesium 2.0 Total Bilirubin 0.5 AST 36 ALT 22 Alkaline Phosphatase 80 Total Creatine Kinase 192 Troponin I < 0.01 Total Protein 8.1 Albumin 4.4 Globulin 3.6 Albumin/Globulin Ratio 1.2 TSH 3rd Generation Urine Opiates Screen Negative Urine Methadone Screen Negative Ur Barbiturates Screen Negative Ur Phencyclidine Scrn Negative Ur Amphetamines Screen Negative U Benzodiazepines Scrn Negative U Oth Cocaine Metabols Negative U Cannabinoids Screen Negative 09/23/18 09/23/18 09/23/18 18:57 18:57 20:00 WBC RBC Hgb Hct MCV MCH MCHC RDW Plt Count MPV Gran % Lymph % (Auto) [place] % (Auto) Eos % (Auto) Baso % (Auto) Gran # Lymph # (Auto) [place] # (Auto) Eos # (Auto) Baso # (Auto) PT 12.2 INR 1.07 APTT 34.5 D-Dimer, Quantitative < 200 Sodium Potassium Chloride Carbon Dioxide Anion Gap BUN Creatinine Est GFR ( Amer) Est GFR (Non-Af Amer) Random Glucose Calcium Magnesium Total Bilirubin AST ALT Alkaline Phosphatase Total Creatine Kinase Troponin I < 0.01 Total Protein Albumin Globulin Albumin/Globulin Ratio TSH 3rd Generation 0.96 Urine Opiates Screen Urine Methadone Screen Ur Barbiturates Screen Ur Phencyclidine Scrn Ur Amphetamines Screen U Benzodiazepines Scrn U Oth Cocaine Metabols U Cannabinoids Screen 09/24/18 09/24/18 02:35 05:20 WBC 6.5 D RBC 4.26 Hgb 12.6 D Hct 38.2 MCV 89.7 MCH 29.6 MCHC 33.0 RDW 13.1 Plt Count 244 MPV 11.4 H Gran % 38.6 L Lymph % (Auto) 52.3 H [place] % (Auto) 5.3 Eos % (Auto) 3.6 Baso % (Auto) 0.2 Gran # 2.50 Lymph # (Auto) 3.4 [place] # (Auto) 0.3 Eos # (Auto) 0.2 Baso # (Auto) 0.01 PT INR APTT D-Dimer, Quantitative Sodium Potassium Chloride Carbon Dioxide Anion Gap BUN Creatinine Est GFR ( Amer) Est GFR (Non-Af Amer) Random Glucose Calcium Magnesium Total Bilirubin AST ALT Alkaline Phosphatase Total Creatine Kinase Troponin I < 0.01 Total Protein Albumin Globulin Albumin/Globulin Ratio TSH 3rd Generation Urine Opiates Screen Urine Methadone Screen Ur Barbiturates Screen Ur Phencyclidine Scrn Ur Amphetamines Screen U Benzodiazepines Scrn U Oth Cocaine Metabols U Cannabinoids Screen Attending/Attestation - Attestation I have personally seen and examined this patient.: Yes I have fully participated in the care of the patient.: Yes I have reviewed all pertinent clinical information: Yes
[2018-09-23] MEDS: Sodium Chloride 0.9% 1,000 ML IV SCH (22:32)
[2018-09-24 06:16] LABS: BASO # 0.01 K/mm3 (0.0-2.0); BASO % 0.2 % (0.0-3.0); EOS # 0.2 (0.0-0.7); EOS % 3.6 % (1.5-5.0); GRAN # 2.5 (1.4-6.5); GRAN % 38.6 % (50.0-68.0); LYMPH # 3.4 (1.2-3.4); LYMPH % 52.3 % (22.0-35.0); MEAN CELL VOLUME 89.7 fl (80.0-105.0); MEAN CORPUSCULAR HEMOGLOBIN 29.6 pg (25.0-35.0); MEAN PLATELET VOLUME 11.4 fl (7.0-11.0); MONO # 0.3 (0.1-0.6); MONO % 5.3 % (1.0-6.0); RBC 4.26 10^6/uL (3.5-6.1); RED CELL DISTRIBUTION WIDTH 13.1 % (11.5-14.5); WHITE BLOOD COUNT 6.5 10^3/uL (4.5-11.0)
[2018-09-24 06:23] LABS: HEMOGLOBIN 12.6 g/dL (12.0-16.0)
[2018-09-24 06:27] VITALS: O2SAT 94
[2018-09-24 06:43] LABS: ALB/GLOB RATIO 1.2 (1.1-1.8); ALBUMIN 3.6 g/dL (3.0-4.8); ALT/SGPT 26 U/L (7-56); AST/SGOT 30 U/L (14-36); BLOOD UREA NITROGEN 12 mg/dL (7-21); CALCIUM 8.8 mg/dL (8.4-10.5); GFR NON-AFRICAN AMERICAN > 60
[2018-09-24] MEDS: Sodium Chloride 0.9% 1,000 ML IV SCH (06:54)
--- NOTE | 2018-09-24 10:47 | CARD ---
APPROVED REPORT Date of service: 09/23/2018 EKG Measurement Heart [id number] <Conclusion> Sinus bradycardia Otherwise normal ECG
--- NOTE | 2018-09-24 10:53 | CARD ---
APPROVED REPORT Date of service: 09/23/2018 EKG Measurement Heart [id number] [id number] <Conclusion> Marked sinus bradycardia with sinus arrhythmia Nonspecific T wave changes Abnormal ECG
--- NOTE | 2018-09-24 11:11 | CARD ---
APPROVED REPORT Date of service: 09/23/2018 EKG Measurement Heart [id number] [place] 128P36 [id number] <Conclusion> Sinus bradycardia Otherwise normal ECG
[2018-09-24] MEDS ORDERED: Iohexol 350 MG/100 ML VIAL ONE (12:50)
--- NOTE | 2018-09-24 13:07 | CP.PCM.DIS ---
<Zeyad Hall - Last Filed: 09/24/18 18:12> Provider - Provider Date of Admission: 09/23/18 20:09 Attending physician: Steffanie Mcadams MD Primary care physician: NO PRIMARY CARE PROVIDER Consults: Cardio: Dr. Betts Time Spent in preparation of Discharge (in minutes): 60 Hospital Course - Lab Results Lab Results: Most Recent Lab Values WBC 6.5 10^3/uL (4.5-11.0) D 09/24/18 05:20 RBC 4.26 10^6/uL (3.5-6.1) 09/24/18 05:20 Hgb 12.6 g/dL (12.0-16.0) D 09/24/18 05:20 Hct 38.2 % (36.0-48.0) 09/24/18 05:20 MCV 89.7 fl (80.0-105.0) 09/24/18 05:20 MCH 29.6 pg (25.0-35.0) 09/24/18 05:20 MCHC 33.0 g/dl (31.0-37.0) 09/24/18 05:20 RDW 13.1 % (11.5-14.5) 09/24/18 05:20 Plt Count 244 10^3/uL (120.0-450.0) 09/24/18 05:20 MPV 11.4 fl (7.0-11.0) H 09/24/18 05:20 Gran % 38.6 % (50.0-68.0) L 09/24/18 05:20 Lymph % (Auto) 52.3 % (22.0-35.0) H 09/24/18 05:20 [place] % (Auto) 5.3 % (1.0-6.0) 09/24/18 05:20 Eos % (Auto) 3.6 % (1.5-5.0) 09/24/18 05:20 Baso % (Auto) 0.2 % (0.0-3.0) 09/24/18 05:20 Gran # 2.50 (1.4-6.5) 09/24/18 05:20 Lymph # (Auto) 3.4 (1.2-3.4) 09/24/18 05:20 [place] # (Auto) 0.3 (0.1-0.6) 09/24/18 05:20 Eos # (Auto) 0.2 (0.0-0.7) 09/24/18 05:20 Baso # (Auto) 0.01 K/mm3 (0.0-2.0) 09/24/18 05:20 PT 12.2 SECONDS (9.4-12.5) 09/23/18 18:57 INR 1.07 09/23/18 18:57 APTT 34.5 Seconds (25.1-36.5) 09/23/18 18:57 D-Dimer, Quantitative < 200 ng/mlDDU (0-243) 09/23/18 18:57 Sodium 139 mmol/L (132-148) 09/24/18 05:20 Potassium 4.0 mmol/L (3.6-5.0) 09/24/18 05:20 Chloride 107 mmol/L (98-107) 09/24/18 05:20 Carbon Dioxide 25 mmol/L (21-33) 09/24/18 05:20 Anion Gap 11 (10-20) 09/24/18 05:20 BUN 12 mg/dL (7-21) 09/24/18 05:20 Creatinine 0.7 mg/dl (0.7-1.2) 09/24/18 05:20 Est GFR ( Amer) > 60 09/24/18 05:20 Est GFR (Non-Af Amer) > 60 09/24/18 05:20 POC Glucose (mg/dL) 96 mg/dL (65-110) 09/24/18 10:59 Random Glucose 103 mg/dL (70-110) 09/24/18 05:20 Calcium 8.8 mg/dL (8.4-10.5) 09/24/18 05:20 Magnesium 2.0 mg/dL (1.7-2.2) 09/23/18 16:43 Total Bilirubin 0.6 mg/dL (0.2-1.3) 09/24/18 05:20 AST 30 U/L (14-36) 09/24/18 05:20 ALT 26 U/L (7-56) 09/24/18 05:20 Alkaline Phosphatase 70 U/L (38-126) 09/24/18 05:20 Total Creatine Kinase 192 U/L (35-230) 09/23/18 16:43 Troponin I < 0.01 ng/mL 09/24/18 08:25 Total Protein 6.6 g/dL (5.8-8.3) 09/24/18 05:20 Albumin 3.6 g/dL (3.0-4.8) 09/24/18 05:20 Globulin 3.1 gm/dL 09/24/18 05:20 Albumin/Globulin Ratio 1.2 (1.1-1.8) 09/24/18 05:20 TSH 3rd Generation 0.96 mIU/mL (0.46-4.68) 09/23/18 18:57 Urine Opiates Screen Negative (NEGATIVE) 09/23/18 17:50 Urine Methadone Screen Negative (NEGATIVE) 09/23/18 17:50 Ur Barbiturates Screen Negative (NEGATIVE) 09/23/18 17:50 Ur Phencyclidine Scrn Negative (NEGATIVE) 09/23/18 17:50 Ur Amphetamines Screen Negative (NEGATIVE) 09/23/18 17:50 U Benzodiazepines Scrn Negative (NEGATIVE) 09/23/18 17:50 U Oth Cocaine Metabols Negative (NEGATIVE) 09/23/18 17:50 U Cannabinoids Screen Negative (NEGATIVE) 09/23/18 17:50 - Hospital Course Hospital Course: PGY1 Discharge Summary for Dr. Mcadams This is a 28 year old female with past medical history of seizure disorder, cholecystitis who presented with left sided chest pressure with radiation to her right shoulder, generalized weakness, fatigue and dizziness a few hours prior to presentation. 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 Patient reported medication compliance and close follow up with Dr. Nagy her neurologist. Please see chart for more detail. Patient was subsequently admitted for ACS rule out and observation. Serial trops were negative. Most recent EKG showed sinus bradycardia, however other EKGs were unremarkable. D-Dimer was negative. Heart Score was 1 (low risk). Cardiology was consulted; Dr. Betts, who recommended CT angiogram to rule out PE, which was negative. Most recent ECHO was in 2017 and revealed EF 55% with trace AR/TR/MR/PI, RVSP 29, no vegetations noted. UDS was negative. Chest X-ray was obtained and was unremarkable for focal consolidation. Please see chart for more detail. Furthermore the patient has history of seizures. Head CT without contrast was obtained and was negative for acute intracranial findings. While hospitalized the patient's home medications (Keppra 500mgQAM, 1000mg QPM) was resumed. Seizure precautions were implemented. Fall precautions were implemented. On day of discharge patient was complaining of back pain, which was relived with ketorolac IV. Patient was hemodynamically stable for discharge to home with instructions as stated in the patient's chart. Consultants agreed. Please see chart for more detail. Patient is to follow up with her Neurologist (Dr. Nagy) and to continue all other medications as prescribed to her. Patient is to follow up in the [facility] within 7 days of discharge. Appointment has been made. Patient was also given Rx for Motrin 400mg PO PRN for moderate musculoskeletal pain. Patient was advised complete cessation of alcohol use due to her history of seizures. Patient given written instructions. All instructions explained to the patient in detail. Patient both understand and agree to all instructions. Please see full chart for more detail. Discharge Medications: Klonopin 0.5mg PO daily Motrin 400mg PO TID #9 PRN for moderate musculoskeletal pain Keppra 500mg PO BID #28 Patient seen and case discussed in detail with Dr. Abbe Hall PGY1 Discharge Exam - Additional Findings Additional findings: - Constitutional Appears: No Acute Distress - Head Exam Head Exam: ATRAUMATIC, NORMAL INSPECTION, NORMOCEPHALIC - Eye Exam Eye Exam: EOMI, PERRL - ENT Exam ENT Exam: Mucous Membranes Dry - Respiratory Exam Respiratory Exam: Clear to Auscultation Bilateral, NORMAL BREATHING PATTERN. absent: Rhonchi, Wheezes - Cardiovascular Exam Cardiovascular Exam: Bradycardia, REGULAR RHYTHM, +S1, +S2 - GI/Abdominal Exam GI & Abdominal Exam: Normal Bowel Sounds, Soft. absent: Firm, Guarding - Extremities Exam Extremities exam: Positive for: normal inspection. Negative for: calf tenderness, pedal edema - Neurological Exam Neurological exam: Alert, CN II-XII Intact, Oriented x3, Reflexes Normal Additional comments: motor and sensory grossly intact - Psychiatric Exam Psychiatric exam: Normal Mood - Skin Skin Exam: Dry, Intact Discharge Plan - Discharge Medications Prescriptions: Ibuprofen [Motrin] 400 mg PO TID PRN 3 Days #9 tab PRN Reason: Pain, Moderate (4-7) - Follow Up Plan Condition: STABLE Disposition: HOME/ ROUTINE Instructions: Chest Pain (DC), Chest Pain (GEN) Additional Instructions: Please discharge patient to home with the following instructions: 1. You were diagnosed with atypical chest pain, musculoskeletal in nature 2. You were prescribed Motrin 400mg, take up to 3 times per day as needed for moderate pain. 3. Please continue your home medications as previously prescribed. 4. Please follow-up with your neurologist as an outpatient within 3-5 days. 5. Please follow-up at [facility] [place] clinic for primary care ([phone]). You have an appointment already scheduled for you on September 28, 2018 at 3:30PM. YOU NEED TO COMPLETE YOUR [facility] EMERGENCY DEPARTMENT PAPERWORK PRIOR TO YOUR APPOINTMENT PLEASE CALL THE NUMBER ABOVE TOMORROW (09/25) FOR MORE INFORMATION Please arrive 15 minutes prior to your scheduled appointment with all necessary paperwork. 6. Please return to your nearest emergency department if your symptoms should return. Referrals: PCP,NO [Primary Care Provider] - <Steffanie Mcadams - Last Filed: 09/24/18 18:26> Provider - Provider Date of Admission: 09/23/18 20:09 Attending physician: Steffanie Mcadams MD Primary care physician: NO PRIMARY CARE PROVIDER Hospital Course - Lab Results Lab Results: Most Recent Lab Values WBC 6.5 10^3/uL (4.5-11.0) D 09/24/18 05:20 RBC 4.26 10^6/uL (3.5-6.1) 09/24/18 05:20 Hgb 12.6 g/dL (12.0-16.0) D 09/24/18 05:20 Hct 38.2 % (36.0-48.0) 09/24/18 05:20 MCV 89.7 fl (80.0-105.0) 09/24/18 05:20 MCH 29.6 pg (25.0-35.0) 09/24/18 05:20 MCHC 33.0 g/dl (31.0-37.0) 09/24/18 05:20 RDW 13.1 % (11.5-14.5) 09/24/18 05:20 Plt Count 244 10^3/uL (120.0-450.0) 09/24/18 05:20 MPV 11.4 fl (7.0-11.0) H 09/24/18 05:20 Gran % 38.6 % (50.0-68.0) L 09/24/18 05:20 Lymph % (Auto) 52.3 % (22.0-35.0) H 09/24/18 05:20 [place] % (Auto) 5.3 % (1.0-6.0) 09/24/18 05:20 Eos % (Auto) 3.6 % (1.5-5.0) 09/24/18 05:20 Baso % (Auto) 0.2 % (0.0-3.0) 09/24/18 05:20 Gran # 2.50 (1.4-6.5) 09/24/18 05:20 Lymph # (Auto) 3.4 (1.2-3.4) 09/24/18 05:20 [place] # (Auto) 0.3 (0.1-0.6) 09/24/18 05:20 Eos # (Auto) 0.2 (0.0-0.7) 09/24/18 05:20 Baso # (Auto) 0.01 K/mm3 (0.0-2.0) 09/24/18 05:20 PT 12.2 SECONDS (9.4-12.5) 09/23/18 18:57 INR 1.07 09/23/18 18:57 APTT 34.5 Seconds (25.1-36.5) 09/23/18 18:57 D-Dimer, Quantitative < 200 ng/mlDDU (0-243) 09/23/18 18:57 Sodium 139 mmol/L (132-148) 09/24/18 05:20 Potassium 4.0 mmol/L (3.6-5.0) 09/24/18 05:20 Chloride 107 mmol/L (98-107) 09/24/18 05:20 Carbon Dioxide 25 mmol/L (21-33) 09/24/18 05:20 Anion Gap 11 (10-20) 09/24/18 05:20 BUN 12 mg/dL (7-21) 09/24/18 05:20 Creatinine 0.7 mg/dl (0.7-1.2) 09/24/18 05:20 Est GFR ( Amer) > 60 09/24/18 05:20 Est GFR (Non-Af Amer) > 60 09/24/18 05:20 POC Glucose (mg/dL) 96 mg/dL (65-110) 09/24/18 10:59 Random Glucose 103 mg/dL (70-110) 09/24/18 05:20 Calcium 8.8 mg/dL (8.4-10.5) 09/24/18 05:20 Magnesium 2.0 mg/dL (1.7-2.2) 09/23/18 16:43 Total Bilirubin 0.6 mg/dL (0.2-1.3) 09/24/18 05:20 AST 30 U/L (14-36) 09/24/18 05:20 ALT 26 U/L (7-56) 09/24/18 05:20 Alkaline Phosphatase 70 U/L (38-126) 09/24/18 05:20 Total Creatine Kinase 192 U/L (35-230) 09/23/18 16:43 Troponin I < 0.01 ng/mL 09/24/18 08:25 Total Protein 6.6 g/dL (5.8-8.3) 09/24/18 05:20 Albumin 3.6 g/dL (3.0-4.8) 09/24/18 05:20 Globulin 3.1 gm/dL 09/24/18 05:20 Albumin/Globulin Ratio 1.2 (1.1-1.8) 09/24/18 05:20 TSH 3rd Generation 0.96 mIU/mL (0.46-4.68) 09/23/18 18:57 Urine Opiates Screen Negative (NEGATIVE) 09/23/18 17:50 Urine Methadone Screen Negative (NEGATIVE) 09/23/18 17:50 Ur Barbiturates Screen Negative (NEGATIVE) 09/23/18 17:50 Ur Phencyclidine Scrn Negative (NEGATIVE) 09/23/18 17:50 Ur Amphetamines Screen Negative (NEGATIVE) 09/23/18 17:50 U Benzodiazepines Scrn Negative (NEGATIVE) 09/23/18 17:50 U Oth Cocaine Metabols Negative (NEGATIVE) 09/23/18 17:50 U Cannabinoids Screen Negative (NEGATIVE) 09/23/18 17:50 Attending/Attestation - Attestation I have personally seen and examined this patient.: Yes I have fully participated in the care of the patient.: Yes I have reviewed all pertinent clinical information, including history, physical exam and plan: Yes Notes (Text): 09/24/18 18:24 Medical record note made by the resident after discussion with my direction and input after the patient was personally seen and examined by me. I have reviewed the chart and agree that the record accurately reflects by personal performance of the history, physical exam, data review, and medical decision-making, in the course for the patient. I have also personally directed the plan of care. 28 year old female with past medical history of seizure disorder, cholecystitis was admitted with atypical chest doroteo, has chest wall tenderness. EKG was negative for ischemic changes, Serial troponins are normal. CT angio chest is negative for Pulmonary embolism. Cardiology evaluation is appreciated. Patient will be discharged home and will follow up with her PCP and Neurologist. Management plan was discussed in detail with patient. Education was provided
--- NOTE | 2018-09-24 13:55 | CT ---
Date of service: 09/24/2018 PROCEDURE: CT Chest with contrast (Pulmonary Angiogram) HISTORY: r/o pe, if test is negative COMPARISON: None available. TECHNIQUE: Axial computed tomography images were obtained of the chest in the pulmonary arterial phase of enhancement. Coronal and sagittal reformatted images were created and reviewed. Intravenous contrast dose: 100 mL Omnipaque 350 Radiation dose: Total exam DLP = 635.84 mGy-cm. This CT exam was performed using one or more of the following dose reduction techniques: Automated exposure control, adjustment of the mA and/or kV according to patient size, and/or use of iterative reconstruction technique. FINDINGS: PULMONARY ARTERIES: There are no filling defects in the pulmonary arteries to suggest acute pulmonary embolism. AORTA: No acute findings. No thoracic aortic aneurysm. No aortic atherosclerotic calcification or mural plaque present. LUNGS: The lungs are well inflated and clear. There is minimal linear subsegmental atelectasis in the right lung base. No nodule, mass or pulmonary consolidation. PLEURAL SPACES: No effusion or pneumothorax. HEART: No cardiomegaly. No significant pericardial effusion. LYMPH NODES: No pathologic mediastinal or hilar lymphadenopathy. BONES, CHEST WALL: Within normal limits for the patient's age. No fracture or destructive lesion OTHER FINDINGS: None. IMPRESSION: No CTA evidence for acute pulmonary embolism. Clear lungs.
--- NOTE | 2018-09-24 14:33 | CON ---
DATE: 09/24/2018 REASON FOR CONSULTATION: Chest pain. 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 Her most recent seizure activity was in March 2018. The patient is on Keppra. Otherwise, no known prior cardiac history. The patient is presenting because of chest discomfort radiating to the upper back. The patient denies any associated shortness of breath. She does complain of dizziness. SOCIAL HISTORY: Nonsmoker. Nondrinker. The patient is a mother of two children. 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 REVIEW OF SYSTEM: No nausea or vomiting. No fever or chills. PHYSICAL EXAMINATION: GENERAL: The patient is a young, middle-aged female who does not appear to be in acute distress. VITAL SIGNS: Blood pressure 104/65, heart rate 46, temperature 97.4, respirations 20. HEENT: Normocephalic. CHEST: Clear. HEART: S1, S2 regular. ABDOMEN: Soft. EXTREMITIES: No edema. No calf tenderness. LABORATORY DATA: Today's hemoglobin and hematocrit, white count and platelet count are within normal limit. The SMA-7 is within normal limit. Three sets of troponins are negative. PT, PTT, INR, and D-dimer are within normal limits. Urine drug screen is negative. It was reported to me that urine test was done in the emergency room and was negative. DIAGNOSTIC DATA: Review of old EKGs revealed sinus rhythm with nonspecific anterior T-wave changes although one computer read was considered anterior ischemia. ____ the patient has bradycardia at the rate of 55. ASSESSMENT: 1. No chest pain. Myocardial infarction is ruled out. 2. Rule out pulmonary infarction. 3. History of seizure disorder. RECOMMENDATIONS: I did review the results of the chest x-ray which was unremarkable. EKG scan revealed no acute findings. Continue current Keppra and Pepcid and obtain chest CT angio to rule out pulmonary embolus. Simeon Betts MD [facility] # [id number]
[2018-09-25 00:13] VITALS: BP 107/62; PULSE 63; RESP 21; TEMP 97.1
== END 2018-09-24 16:57 | disposition home or self-care (01) ==
LOC: ED 14:43 → ERH 20:09 → 2RNO 20:56
PROVIDERS: ADMIT Hospitalist; ATTEND Internal Medicine
DX: R07.89 Other chest pain (principal); G40.909 Epilepsy, unspecified, not intractable, without status epilepticus; M54.9 Dorsalgia, unspecified; Z90.49 Acquired absence of other specified parts of digestive tract; Z83.3 Family history of diabetes mellitus
CPT/HCPCS: 36415; 70450; 71045; 71275; 80053; 82550; 82948; 83735; 84443; 84484; 85025; 85378; 85610; 85730; 93005; 96374; 96375; 96376; 99285; G0378; G0480; J1885; J2405; J7030; Q9967